=== PATIENT | female | born 1955 | race Caucasian/White ===

== ENCOUNTER → 2017-05-04 | Outpatient (CLI) | payer OTHER, SELFPAY | PROVIDERS: Visit Provider Family Medicine | DX: Z12.31 Encounter for screening mammogram for malignant neoplasm of breast (principal) | CPT/HCPCS: 77067; G0202 ==

== ENCOUNTER → 2018-04-25 17:25 | Outpatient (CLI) | payer OTHER, SELFPAY ==
[2018-04-25 17:30] LABS: Microscopic, Urine URINE MICROSCOPIC (MICROSCOPIC)
[2018-04-25 18:26] LABS: Appearance,Urine CLEAR (Clear); Bilirubin,Urine Negative (Negative); Blood, Urine Negative (Negative); Color,Urine YELLOW (Yellow); Glucose,Urine (UA) Negative (Negative); Ketones,Urine TRACE (Negative); Leukocyte Esterase,Urine 1+ (Negative); Nitrate,Urine Negative (Negative); PH,Urine 5.5 (5.0-8.5); Protein,Urine Negative (Negative); Urobilinogen,Urine 0.2 EU/dl (0.2)
[2018-04-25 18:47] LABS: Squamous Epithelial Cell,Urine Occasional #/hpf (0-5)
[2018-04-25 18:48] LABS: Bacteria,Urine Trace /lpf
== END ==
PROVIDERS: Visit Provider Emergency Medicine
DX: R30.0 Dysuria (principal)
CPT/HCPCS: 81001; 87086; 87088; 87186

== ENCOUNTER → 2019-03-06 16:44 | Outpatient (CLI) | payer OTHER, SELFPAY ==
--- NOTE | 2019-03-06 16:51 | MM_ITS ---
PROCEDURE: MM DIG SCREENING MAMM BI W/CAD CLINICAL INDICATION: SCEENING There is a history of breast cancer in the patient's paternal aunt. There has been previous biopsies x3 left breast for benign disease. COMPARISON: DMDXUWAL DIG MAMM-DX UNI LT W ADD VIEW from 04/23/2016 DMDB DIG MAMM-DX HARDEEP W/CAD from 10/28/2016 DMSB DIG MAMM-SCREEN HARDEEP W/CAD from 05/04/2017 TECHNIQUE: Standard CC and MLO images were obtained. R2 CAD reviewed. FINDINGS: Prominent diffuse somewhat heterogenic fibroglandular densities are seen in the central portions of both breasts and the findings of bilateral and symmetrical. There are 2 biopsy clips left breast. There is a stable cluster of benign-appearing microcalcifications upper-outer quadrant left breast. There is no suspicious lesion and no suspicious microcalcifications. IMPRESSION: Moderate diffuse breast density with no suspicious lesions seen BI-RAD Category: 2 Benign Finding(s) FOLLOW-UP: 1YR 1 Year Follow-up (A letter has been sent to the patient regarding results of the study.) Dictated by: Dr. Bharat Sanchez MD 03/08/2019 19:[address] Bharat Sanchez MD in [place] 03/08/2019 19:34
== END ==
PROVIDERS: PCP Family Medicine; Visit Provider Family Medicine
DX: Z12.31 Encounter for screening mammogram for malignant neoplasm of breast (principal)
CPT/HCPCS: 77067

== ENCOUNTER 2020-01-12 17:50 | Emergency (ER) | payer OTHER, SELFPAY ==
[2020-01-12 18:22] VITALS: BP 120/90; PULSE 72; RESP 20; TEMP 36.7; O2SAT 98; BMI 30.7
[2020-01-12 18:26] VITALS: BP 120/90; PULSE 72; RESP 20; TEMP 36.7; O2SAT 98; BMI 30.5
--- NOTE | 2020-01-12 18:28 | HMH.EDUTC ---
[facility] [place] Disposition Clinical Impression: Shingles Qualifiers: Herpes zoster complications: without complications Qualified Code(s): B02.9 - Zoster without complications Disposition: Home, Self-Care Condition on Discharge: Good Instructions: DI for Shingles, Shingles, Acyclovir Additional Instructions: Take medication as prescribed If lesions break out and start to ooz make sure to cover Return if needed Straight to ER if any life threatening symptoms Prescriptions: Acyclovir [Acyclovir 800mg tab] 800 mg PO 5XDAY 7 Days #35 tab Transmission Status: Pending to [facility] Referrals: Cathy Calderon MD [Primary Care Provider] - As needed Time of Disposition: 18:39 Medical Decision Making - [place] Inquiry Pt receiving controlled substance: No [place] was queried for this patient: No Vital Signs: 01/12/20 18:22 01/12/20 18:26 Temperature 98.0 F 98.0 F Temperature Source Oral Oral Pulse Rate [Left Brachial] 72 72 Respiratory Rate 20 20 Blood Pressure [Left Arm] 120/90 120/90 Blood Pressure Mean [Left Arm] 100 100 Blood Pressure Source [Left Arm] Automatic Cuff Automatic Cuff Blood Pressure Position [Left Arm] Sitting Sitting 02 Sat by Pulse Oximetry 98 98 Oxygen Delivery Method Room Air Room Air [facility] [place] HPI - General Stated complaint: sore spot on L side of head Time Seen by Provider: 01/12/20 18:25 Mode of Arrival: Ambulatory Source of Information: Patient Limitations: No Limitations Description of Symptoms (Recalled from Triage Doc. by RN): PATIENT C/O SCALP TENDERNESS TO LEFT SIDE OF HEAD AND DOWN RIGHT SIDE OF NECK. 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 DID NOT HIT HEAD, NO VISION CHANGES. SHE REPORTS LAST WEEK SHE ALSO EXPERIENCED BODY ACHES AND TENDERNESS BEHIND EARS - History of Present Illness Provider Complaint: Patient states that last week she had some swollen lymph nodes behind her left ear and has been having some body aches States that about an hour ago she was having a burning, tingling like pain on the left side of the top of her head and was sore to touch States that she hasnt hit her head or anything and unsure what is going on States that it is just like a small area there that is tender and hurts and mcghee - Related Data Home Medications Medication Instructions Recorded Confirmed albuterol sulfate 90 mcg/actuation 1 puff INHALATION Q6H PRN 02/04/19 02/04/19 aerosol inhaler cartilage 40 mg-collagen II-boron 1 tab PO tab 02/04/19 02/04/19 5 mg-hyaluronate sod 3.3 mg tablet conjugated estrogens 0.3 mg tablet 0.3 mg PO DAILY 02/04/19 02/04/19 conjugated estrogens 0.625 mg/gram 0.625 mg VAGINAL .once a week g 02/04/19 02/04/19 vaginal cream diphenhydramine HCl 25 mg capsule 25 mg PO QHS PRN 02/04/19 02/04/19 erythromycin 5 mg/gram (0.5 %) eye 1 applic OPHTHALMIC DAILY 02/04/19 02/04/19 ointment fexofenadine 180 mg tablet 180 mg PO DAILY 02/04/19 02/04/19 fluticasone 250 mcg-salmeterol 50 1 inh INHALATION Q12H 02/04/19 02/04/19 mcg/dose blistr powdr for inhalation furosemide 40 mg tablet 40 mg PO DAILY 02/04/19 02/04/19 montelukast 10 mg tablet 10 mg PO QPM 02/04/19 02/04/19 omeprazole 20 mg capsule,delayed 20 mg PO DAILY 02/04/19 02/04/19 release spironolactone 25 mg tablet 25 mg PO DAILY 02/04/19 02/04/19 vit C,E,zinc,copper-[id number] 250 1 cap PO DAILY 02/04/19 02/04/19 mg-lutein 5 mg-zeaxanthin 1 mg capsule Previous Rx's Medication Instructions Recorded cephalexin 500 mg tablet 500 mg PO BID 10 Days #20 tab 02/04/19 fluconazole 150 mg tablet 150 mg PO Q3D 0 Days #2 tab 02/04/19 phenazopyridine 100 mg tablet 100 mg PO TID PRN 0 Days #6 tab 02/04/19 Acyclovir [Acyclovir 800mg tab] 800 mg PO 5XDAY 7 Days #35 tab 01/12/20 Allergies Allergy/AdvReac Type Severity Reaction Status Date / Time ciprofloxacin [From Cipro] Allergy Unknown Verified 02/04/19 12:12 metronidazole Allergy Unknown Verified 02/04/19 12:12 Sulfa (Sulfonamide Aller
[2020-01-12 19:05] VITALS: BP 120/90; PULSE 72; RESP 20; TEMP 36.7; O2SAT 98
== END 2020-01-12 19:07 | disposition home or self-care (01) ==
PROVIDERS: Emergency Provider Nurse Practitioner; PCP Family Medicine
DX: B02.9 Zoster without complications (principal); J45.909 Unspecified asthma, uncomplicated; Z79.899 Other long term (current) drug therapy; Z88.2 Allergy status to sulfonamides; Z90.49 Acquired absence of other specified parts of digestive tract; Z90.710 Acquired absence of both cervix and uterus
CPT/HCPCS: 99201

== ENCOUNTER → 2020-03-15 08:49 | Outpatient (CLI) | payer OTHER, SELFPAY ==
--- NOTE | 2020-03-15 08:51 | MM_ITS ---
PROCEDURE: MM DIG SCREENING MAMM BI W/CAD Digital Breast Tomosynthesis Included CLINICAL INDICATION: SCREENING There is a history of breast cancer in the patient's paternal aunt. There have been previous biopsies left breast for benign disease.. COMPARISON: Digital mammograms with CAD 03/06/2019 and 05/04/2017 TECHNIQUE: Standard CC and MLO images and 3D Tomosynthesis was obtained. R2 CAD reviewed. FINDINGS: Prominent diffuse somewhat heterogenic fibroglandular densities are seen throughout both breast and the findings are fairly symmetrical bilaterally. There are 3 biopsy clips left breast there is a mole marker right breast. There is a cluster of benign-appearing microcalcifications upper outer quadrant left breast. These are stable and unchanged from the previous exams. There additional scattered microcalcifications upper-outer quadrant left breast consistent with sclerosing adenosis. There is a tiny stable benign-appearing nodular density outer quadrant left breast. There is no new or suspicious lesion in either breast and no suspicious microcalcifications. IMPRESSION: Diffusely dense parenchymal pattern with no suspicious lesions seen BI-RAD Category: 2 Benign Finding(s) FOLLOW-UP: 1YR 1 Year Follow-up (A letter has been sent to the patient regarding results of the study.) Dictated by: Dr. Bharat Sanchez MD 03/19/2020 11:41 Dr. Bharat Sanchez MD in [place] 03/19/2020 11:41
== END ==
PROVIDERS: PCP Family Medicine; Visit Provider Family Medicine
DX: Z12.31 Encounter for screening mammogram for malignant neoplasm of breast (principal)
CPT/HCPCS: 77063; 77067

== ENCOUNTER 2020-03-30 18:23 | Emergency (ER) | payer OTHER, SELFPAY ==
[2020-03-30 18:25] VITALS: BP 120/78; PULSE 87; RESP 20; TEMP 36.8; O2SAT 97; BMI 33.6
--- NOTE | 2020-03-30 18:44 | HMH.EDUTC ---
[facility] [place] Clinical Impression: Common cold virus, COVID-19 virus test result unknown Disposition: Home, Self-Care Condition on Discharge: Good Instructions: DI for Common Cold, Preventing the Spread of Coronavirus Discharge Instructions Additional Instructions: No sign of a bacterial infection. Likely viral. Viruses can take 7-14 days to run their course. Nasal saline and bulb syringe or nose Nydia to remove nasal drainage to help with nasal congestion. Hard to eat, drink, sleep with nasal congestion so important to keep this cleaned out. Monitor temp. Tylenol or Motrin as needed for pain or fever Encourage fluids, water, Gatorade, Powerade, Pedialyte if infant/toddler/child Warm salt water gargles Warm fluids Sore throat lozenges Sleep elevated Humidifier/vaporizer Your throat swab was sent for culture and covid test was sent to . These results are typically sent to the primary care. Be sure you follow-up in 2-3 days Follow-up immediately for new or worsening symptoms or no noticeable improvement over the next 48-72 hours. self isolate until test results are known to be neg Prescriptions: Fluticasone Propionate [Flonase 50mcg nasal spray 16gm] 1 spr NS DAILY 14 Days #1 bottle Prescription Printed Referrals: Cathy Calderon MD [Primary Care Provider] - Time of Disposition: 18:58 Medical Decision Making - [place] Inquiry Pt receiving controlled substance: No Vital Signs: 03/30/20 18:25 Temperature 98.2 F Temperature Source Oral Pulse Rate [Right Brachial] 87 Respiratory Rate 20 Blood Pressure [Right Arm] 120/78 Blood Pressure Mean [Right Arm] 92 Blood Pressure Source [Right Arm] Automatic Cuff Blood Pressure Position [Right Arm] Sitting 02 Sat by Pulse Oximetry 97 Oxygen Delivery Method Room Air - Lab Data Lab Results 03/30/20 18:32: Influenza Type A Ag Negative, Influenza Type B Ag Negative 03/30/20 18:32: Strep Scn Rapid Clinic Negative Orders (Tests/Meds): ORDERS Category Date Time Status Covid-19 Nasal PCR Sendout [facility] 03/30/20 18:35 Received Strep Screen Confirmation Stat Micro 03/30/20 18:32 Received [facility] [place] HPI - General Chief complaint: Urgent Treatment Center Stated complaint: COVID Testing Time Seen by Provider: 03/30/20 18:44 Mode of Arrival: Ambulatory Source of Information: Patient Limitations: No Limitations Description of Symptoms (Recalled from Triage Doc. by RN): PATIENT C/O SORE THROAT, SINUS CONGESTION/DRAINAGE, BODY ACHES AND FATIGUE X 1 WEEK HEENT Symptoms (Recalled from RN notes): Yes Resp Symptoms (Recalled from RN notes): No Skin Symptoms (Recalled from RN notes): No MS Symptoms (Recalled from RN notes): Yes Functional Status (Recalled from RN notes): WNL - History of Present Illness Provider Complaint: 64 yr old female presnets for covid testing. pt states for 1 week she has had clear nasal drainage, scratchy throat, body aches, slight cough and occ soa. pt states most symptoms are normal for her but she would like to make sure. - Related Data Home Medications Medication Instructions Recorded Confirmed albuterol sulfate 90 mcg/actuation 1 puff INHALATION Q6H PRN 02/04/19 02/04/19 aerosol inhaler cartilage 40 mg-collagen II-boron 1 tab PO tab 02/04/19 02/04/19 5 mg-hyaluronate sod 3.3 mg tablet conjugated estrogens 0.3 mg tablet 0.3 mg PO DAILY 02/04/19 02/04/19 conjugated estrogens 0.625 mg/gram 0.625 mg VAGINAL .once a week g 02/04/19 02/04/19 vaginal cream diphenhydramine HCl 25 mg capsule 25 mg PO QHS PRN 02/04/19 02/04/19 erythromycin 5 mg/gram (0.5 %) eye 1 applic OPHTHALMIC DAILY 02/04/19 02/04/19 ointment fexofenadine 180 mg tablet 180 mg PO DAILY 02/04/19 02/04/19 fluticasone 250 mcg-salmeterol 50 1 inh INHALATION Q12H 02/04/19 02/04/19 mcg/dose blistr powdr for inhalation furosemide 40 mg tablet 40 mg PO DAILY 02/04/19 02/04/19 montelukast 10 mg tablet 10 mg PO QPM 02/04/19 02/04/19 omeprazole 20
[2020-03-30 18:50] LABS: UTC Influenza A Antigen Negative (Negative); UTC Strep Screen (Rapid) Negative (Negative)
[2020-03-30 18:51] LABS: UTC Influenza B Antigen Negative (Negative)
[2020-03-30 18:59] VITALS: BP 120/78; PULSE 87; RESP 20; TEMP 36.8; O2SAT 97
[2020-04-01 10:15] LABS: Covid-19 Nasal PCR Sendout UK Not Detected
== END 2020-03-30 19:02 | disposition home or self-care (01) ==
PROVIDERS: Emergency Provider Nurse Practitioner Family; PCP Family Medicine
DX: Z20.828 Contact with and (suspected) exposure to other viral communicable diseases (principal); J00 Acute nasopharyngitis [common cold]; J45.909 Unspecified asthma, uncomplicated; Z79.899 Other long term (current) drug therapy; Z88.2 Allergy status to sulfonamides; Z88.8 Allergy status to other drugs, medicaments and biological substances; Z90.49 Acquired absence of other specified parts of digestive tract; Z90.710 Acquired absence of both cervix and uterus
CPT/HCPCS: 87804; 87880; 99202; U0003

== ENCOUNTER → 2020-04-30 12:44 | Outpatient (CLI) | payer OTHER, SELFPAY ==
--- NOTE | 2020-04-30 | CA_ITS ---
APPROVED REPORT Right Lower Extremity Venous Study for DVT. Recruiting Operations Consultant: Yahaira Xiong RVT Indications Lower Extremity Pain: Right Pain back of rt knee and back of calf Vein Imaging CFV (R): compressive, spontaneous, phasic, augmentation FEM (R): compressive, spontaneous, phasic, augmentation POP (R): compressive, spontaneous, phasic, augmentation PTV (R): Compressible GSV (R): Compressible Peroneals (R):Compressible GAS (R): Compressible Findings Study suggests no evidence of DVT of the right lower extremity. Study suggests no evidence of SVT of the right lower extremity. Conclusion Study suggests no evidence of DVT of the right lower extremity. Study suggests no evidence of SVT of the right lower extremity. Critical Notification Physician Notified Date: 04/30/2020 Time: 13:20 Physician Name: Harley Wasserman's office Electronically signed by : Momo Garrdio MD 04/30/2020 17:07:33
== END ==
PROVIDERS: PCP Family Medicine; Visit Provider Family Medicine
DX: M79.604 Pain in right leg (principal)
CPT/HCPCS: 93971

== ENCOUNTER 2020-09-06 17:40 | Emergency (ER) | payer OTHER, SELFPAY ==
[2020-09-06] VITALS (7 sets, daily range): BP systolic 104–123; BP diastolic 44–69; PULSE 71–76; RESP 16–18; TEMP 37.2; O2SAT 97–98; BMI 34.3
--- NOTE | 2020-09-06 17:37 | ECG_ITS ---
APPROVED REPORT Exam: Resting ECG HR:76 bpm ECG Measurements Heart Rate 76 AXES OR 142 P 46 QRSd 78 QRS 19 QT 406 T 62 QTc 456 Conclusion Normal sinus rhythm with sinus arrhythmia Normal ECG Electronically signed by : Pablo Phillips, 09/07/2020 08:45:00
--- NOTE | 2020-09-06 17:53 | XR_ITS ---
PROCEDURE INFORMATION: Exam: XR Chest Exam date and time: 09/06/2020 5:53 PM Age: 64 years old Clinical indication: Type not specified; Patient HX: Chest pain and tingling---. Asthma---. Non-smoker--- TECHNIQUE: Imaging protocol: XR of the chest. Views: 2 views. COMPARISON: CR CXR2 XR chest AP 04/02/2018 10:27 PM FINDINGS: Lungs: Unremarkable. No consolidation. Pleural spaces: Unremarkable. No pleural effusion. No pneumothorax. Heart/Mediastinum: Unremarkable. No cardiomegaly. Bones/joints: Unremarkable. IMPRESSION: No acute findings.
[2020-09-06 18:00] LABS: Basophils % 0.4 % (0.1-2.0); Eosinophils # 0.3 K/mm3 (0.0-0.4); Eosinophils % 2.6 % (0.1-12.0); Hematocrit 43.6 % (37.0-47.0); Hemoglobin 14.8 g/dL (12.2-16.2); Lymphocytes # 3.1 K/mm3 (0.7-4.5); Lymphocytes % 29.9 % (10-50); Mean Corpuscular Hemoglobin 32.9 pg (27.0-31.2); Mean Corpuscular Volume 96.9 fl (81-99); Mean Platelet Volume 7.3 fl (7.4-10.4); Monocytes # 0.6 K/mm3 (0.1-1.0); Monocytes % 5.6 % (1.7-9.3); Neutrophils # 6.4 K/mm3 (1.8-7.8); Neutrophils % 61.5 % (37.0-80.0); Platelet Count 286 K/mm3 (142-424); Red Cell Distribution Width 12.9 % (11.5-17.5); White Blood Count 10.3 K/mm3 (4.8-10.8)
[2020-09-06 18:05] LABS: Chloride 101 mmol/L (98-107); Sodium 137 mmol/L (136-145)
[2020-09-06 18:08] LABS: Blood Urea Nitrogen 15 mg/dl (7-17); Carbon Dioxide 28 mmol/L (22.0-30.0); Creatinine Clearance Estimated 81 mL/min (50-200); Estimated Glomerular Filt Rate 56 ml/min (>60); GFR (African American) 68 ML/MIN (>60); Glucose 103 mg/dl (74-100)
--- NOTE | 2020-09-06 18:14 | HMH.EDGENADL ---
ED Disposition Clinical Impression: Atypical chest pain, Palpitations Disposition: Still a Patient Condition on Discharge: Good Instructions: DI for Atypical Chest Pain, DI for Palpitations Additional Instructions: Follow-up with Dr. Salomon, cardiology, next week. Call Wednesday for appointment. Additional instructions for CHEST PAIN: See your physician as soon as possible for further evaluation. Return immediately if worsening chest pain, vomiting, shortness of breath, fever, coughing of blood. Referrals: Provider,MD Nubia [Referring] - Tahir Salomon MD [Staff Physician] - - Critical Care Critical Care Time: No Attestation: On 09/06/20, the high probability of a clinically significant, sudden or life threatening deterioration of the following system(s) required my full and direct attention, intervention and personal management. The time I documented below is in addition to time spent performing reported procedures but includes the following listed in this critical care notation. Medical Decision Making - [place] Inquiry Pt receiving controlled substance: No Vital Signs: 09/06/20 17:40 09/06/20 18:00 09/06/20 18:30 Temperature 98.9 F Temperature Source Oral Pulse Rate 74 76 Pulse Rate [Left Radial] 71 Respiratory Rate 18 16 16 Blood Pressure 104/56 L 123/69 Blood Pressure [Right Arm] 121/69 Blood Pressure Mean 77 83 Blood Pressure Mean [Right Arm] 86 Blood Pressure Source [Right Arm] Automatic Cuff Blood Pressure Position [Right Arm] Sitting 02 Sat by Pulse Oximetry 97 98 98 Oxygen Delivery Method Room Air 09/06/20 19:01 09/06/20 19:30 Temperature Temperature Source Pulse Rate 72 72 Pulse Rate [Left Radial] Respiratory Rate 18 16 Blood Pressure 106/44 L 118/68 Blood Pressure [Right Arm] Blood Pressure Mean 86 80 Blood Pressure Mean [Right Arm] Blood Pressure Source [Right Arm] Blood Pressure Position [Right Arm] 02 Sat by Pulse Oximetry 97 97 Oxygen Delivery Method Room Air - Lab Data Lab Results 09/06/20 17:40: WBC 10.3, RBC 4.50, Hgb 14.8, Hct 43.6, MCV 96.9, MCH 32.9 H, MCHC 34.0, RDW 12.9, Plt Count 286, MPV 7.3 L, Neut % (Auto) 61.5, Lymph % (Auto) 29.9, Pender % (Auto) 5.6, Eos % (Auto) 2.6, Baso % (Auto) 0.4, Neut # (Auto) 6.4, Lymph # (Auto) 3.1, Pender # (Auto) 0.6, Eos # (Auto) 0.3, Baso # (Auto) 0.0 09/06/20 17:40: Sodium 137, Potassium 4.0, Chloride 101, Carbon Dioxide 28, Anion Gap 12.0, BUN 15, Creatinine 1.00, Estimated Creat Clear 81, Estimated GFR 56 L, Est GFR ( Amer) 68, Glucose 103 H, Calcium 10.0, Troponin I < 0.01 Result diagrams: 09/06/20 17:40 09/06/20 17:40 Orders (Tests/Meds): ED MEDICATIONS Discontinued Medications Generic Name Dose Route Start Last Admin Trade Name Freq PRN Reason Stop Dose Admin Aspirin 324 mg 09/06/20 17:59 09/06/20 18:03 Aspirin 81mg Chewable Tablet PO 09/06/20 18:00 324 mg ONCE ONE Administration ORDERS Category Date Time Status Troponin I Q3H Lab 09/06/20 21:00 Ordered Troponin I Q3H Lab 09/07/20 00:00 Ordered - ECG Data Tracing #1 EKG interpreted by Arnaldo Campbell MD: Rhythm: sinus Rate: 76 [place]: normal Ectopy: none Conduction: normal ST Segment Changes: none T Wave Changes: none Q Waves: none No evidence of acute ischemia or injury Normal electrocardiogram - ORA Score for Non-Stemi Age of Patient: 60-69 years old Heart Rate: 70-89 bpm Systolic Blood Pressure: 120-139 mmhg Serum Creatinine: 0.80-1.19 mg/dl CHF Kill[place] Class: I-No CHF Other Risk Factors: None Non-Stemi Risk Score: 108 Medical Decision Narrative: Heart Pathway Score is: 1 Low Risk 8:15 PM: Awaiting second troponin, if negative will be discharged. Dr. Mc to follow-up second troponin. General Adult HPI - General Chief complaint: Chest Pain Stated complaint: Chest Pain Time Seen by Provider: 09/06/20 18:14 Mode of Arrival: Ambulatory [facility]
--- NOTE | 2020-09-06 18:16 | PC.NURSE ---
pt going to rad.
[2020-09-06 18:23] LABS: Troponin I < 0.01 ng/ml (0.00-0.034)
--- NOTE | 2020-09-06 20:31 | PC.NURSE ---
2nd trop sent up to lab
[2020-09-06 21:00] LABS: Troponin I < 0.01 ng/ml (0.00-0.034)
== END 2020-09-06 21:07 | disposition home or self-care (01) ==
PROVIDERS: Emergency Provider Emergency Medicine; PCP Family Medicine
DX: R07.89 Other chest pain (principal); R00.2 Palpitations; J45.909 Unspecified asthma, uncomplicated; Z79.899 Other long term (current) drug therapy; Z88.1 Allergy status to other antibiotic agents; Z88.2 Allergy status to sulfonamides; Z90.49 Acquired absence of other specified parts of digestive tract; Z90.79 Acquired absence of other genital organ(s)
CPT/HCPCS: 71046; 80048; 84484; 85025; 93005; 99282

== ENCOUNTER → 2021-03-20 12:48 | Outpatient (CLI) | payer MEDICARE, OTHER, SELFPAY ==
--- NOTE | 2021-03-20 12:51 | MM_ITS ---
PROCEDURE INFORMATION: Exam: MG Bilateral Screening 3D Mammography Exam date and time: 03/20/2021 12:51 PM Age: 65 years old Clinical indication: Screening exam; Family history of breast cancer : Aunt TECHNIQUE: Imaging protocol: Bilateral screening tomosynthesis and 2D mammography including computer-aided detection (CAD) when performed. COMPARISON: 1. MG MM DIG SCREENING MAMM BI W/CAD 03/15/2020 9:05 AM 2. MG MM DIG SCREENING MAMM BI W/CAD 03/06/2019 4:56 PM FINDINGS: MAMMOGRAPHY: Breast composition: The breast tissue is heterogeneously dense, which may obscure small masses. Mass: None. Architectural distortion: None. Calcifications: No suspicious calcifications. Asymmetric density: None. Skin thickening: None. Axillary adenopathy: None. IMPRESSION: No mammographic evidence of malignancy. Annual screening is recommended unless otherwise clinically indicated. ASSESSMENT: BI-RADS Category 1: Negative
== END ==
PROVIDERS: PCP Family Medicine; Visit Provider Family Medicine
DX: Z12.31 Encounter for screening mammogram for malignant neoplasm of breast (principal)
CPT/HCPCS: 77063; 77067

== ENCOUNTER → 2021-07-10 10:25 | Outpatient (CLI) | payer MEDICARE, OTHER, SELFPAY ==
[2021-07-10 10:55] LABS: Basophils # 0.1 K/mm3 (0-0.2); Basophils % 1.2 % (0.1-2.0); Eosinophils # 0.3 K/mm3 (0.0-0.4); Eosinophils % 2.6 % (0.1-12.0); Hematocrit 43.4 % (37.0-47.0); Hemoglobin 13.9 g/dL (12.2-16.2); Lymphocytes % 19.2 % (10-50); Mean Corpuscular HGB Conc 31.9 g/dL (31.8-35.4); Mean Corpuscular Hemoglobin 33.3 pg (27.0-31.2); Mean Corpuscular Volume 104.3 fl (81-99); Mean Platelet Volume 8.3 fl (7.4-10.4); Monocytes # 0.5 K/mm3 (0.1-1.0); Monocytes % 4.7 % (1.7-9.3); Neutrophils # 7.5 K/mm3 (1.8-7.8); Neutrophils % 72.3 % (37.0-80.0); Platelet Count 272 K/mm3 (142-424); Red Blood Count 4.16 M/mm3 (4.20-5.40); Red Cell Distribution Width 13.1 % (11.5-17.5); White Blood Count 10.3 K/mm3 (4.8-10.8)
== END ==
PROVIDERS: PCP Family Medicine; Visit Provider Family Medicine
DX: Z20.822 Contact with and (suspected) exposure to COVID-19 (principal)
CPT/HCPCS: 36415; 85025; C9803; U0003; U0005

== ENCOUNTER → 2021-09-15 09:03 | Outpatient (CLI) | payer MEDICARE, OTHER, SELFPAY ==
--- NOTE | 2021-09-15 09:18 | US_ITS ---
FINAL REPORT TECHNIQUE: Limited sonographic imaging was obtained of the left lower extremity. CLINICAL HISTORY: palpable area LT LOWER EXTREMTY FINDINGS: There is no soft tissue mass or fluid collection. IMPRESSION: Unremarkable left lower extremity ultrasound. Reviewed, Interpreted and Dictated by Srini West III, MD Transcribed by Sonia Salazar Authenticated by Srini West III, MD on 09/15/2021 11:20:39 AM [facility]
--- NOTE | 2021-09-15 09:39 | MR_ITS ---
FINAL REPORT CLINICAL HISTORY: DDD LUMBAR. tingling bilateral lower extremities. lbp. symptoms [id number]. 20ml prohance given. FINDINGS: Multiplanar MR imaging of the lumbar spine was performed without and with contrast. On the sagittal T2-weighted images, abnormal decreased signal is seen throughout. There are endplate changes at L5-S1. The vertebral alignment is normal. There is no evidence of fracture. The conus is seen at approximately the L1 level and has an unremarkable appearance. L1-2: No significant canal stenosis or neuroforaminal narrowing is seen. L2-3: No significant canal stenosis or neuroforaminal narrowing is seen. L3-4: Annular disc bulge without significant canal stenosis or neuroforaminal narrowing is seen. L4-5: Annular disc bulge and facet arthropathy with mild bilateral neural foraminal narrowing. L5-S1: Annular disc bulge with facet arthropathy and osteophytes. There is mild bilateral neural foraminal narrowing. No abnormal contrast enhancement is identified. IMPRESSION: Multilevel mild degenerative disc disease and spondylosis with areas of neural foraminal narrowing as described. Reviewed, Interpreted and Dictated by Srini West III, MD Transcribed by Sonia Salazar Authenticated by Srini West III, MD on 09/15/2021 12:32:28 PM [facility]
== END ==
PROVIDERS: PCP Family Medicine; Visit Provider Family Medicine
DX: M51.36 Other intervertebral disc degeneration, lumbar region (principal); D17.24 Benign lipomatous neoplasm of skin and subcutaneous tissue of left leg
CPT/HCPCS: 72158; 76376; 76882; A9576

== ENCOUNTER → 2021-11-12 18:08 | Outpatient (CLI) | payer MEDICARE, OTHER, SELFPAY | PROVIDERS: PCP Family Medicine; Visit Provider Family Medicine | DX: Z20.822 Contact with and (suspected) exposure to COVID-19 (principal) | CPT/HCPCS: C9803; U0003; U0005 ==

== ENCOUNTER → 2022-01-29 08:58 | Outpatient (CLI) | payer MEDICARE, OTHER, SELFPAY ==
--- NOTE | 2022-01-29 09:04 | XR_ITS ---
FINAL REPORT TECHNIQUE: Bone densitometry calculations of the lumbar spine and left hip were obtained. CLINICAL HISTORY: .post menopausal FINDINGS: Using L1-4, the bone mineral density of the spine is 1.072 g/cm2, corresponding to T-score of 0.2. Using the left hip, the bone mineral density of the femoral neck is 0.904 g/cm2, corresponding to a T-score of 0.4. IMPRESSION: Normal bone mineral density of the lumbar spine and hip. Reviewed, Interpreted and Dictated by Chevy Capellan MD Transcribed by Jero Lainez Authenticated and [facility]
== END ==
PROVIDERS: PCP Family Medicine; Visit Provider Family Medicine
DX: Z78.0 Asymptomatic menopausal state (principal); M85.80 Other specified disorders of bone density and structure, unspecified site
CPT/HCPCS: 77080

== ENCOUNTER → 2022-03-26 09:47 | Outpatient (CLI) | payer MEDICARE, OTHER, SELFPAY ==
--- NOTE | 2022-03-26 09:50 | MM_ITS ---
PROCEDURE INFORMATION: Exam: MG Bilateral Screening 3D Mammography Exam date and time: 03/26/2022 9:56 AM Age: 66 years old Clinical indication: Screening examination TECHNIQUE: Imaging protocol: Bilateral Screening tomosynthesis and 2D mammography including computer-aided detection (CAD) when performed. COMPARISON: 1. MG MM DIG SCREENING MAMM BI W/CAD 03/20/2021 1:08 PM 2. MG MM DIG SCREENING MAMM BI W/CAD 03/15/2020 9:05 AM FINDINGS: MAMMOGRAPHY: Breast composition: The breasts are heterogeneously dense, which may obscure small masses. Mass: None. Architectural distortion: None. Calcifications: No suspicious calcifications. Asymmetric density: None. Skin thickening: None. Axillary adenopathy: None. IMPRESSION: No mammographic evidence of malignancy. Annual screening is recommended unless otherwise clinically indicated. ASSESSMENT: BI-RADS Category 1: Negative
== END ==
PROVIDERS: PCP Family Medicine; Visit Provider Family Medicine
DX: Z12.31 Encounter for screening mammogram for malignant neoplasm of breast (principal)
CPT/HCPCS: 77063; 77067

== ENCOUNTER → 2022-04-15 17:33 | Outpatient (CLI) | payer MEDICARE, OTHER, SELFPAY ==
[2022-04-15 18:00] LABS: Influenza A, PCR Not Detected (NotDetected); Influenza B, PCR Not Detected (NotDetected)
[2022-04-15 18:28] LABS: Basophils % 1.1 % (0.1-2.0); Eosinophils % 1.1 % (0.1-12.0); Hematocrit 41.2 % (37.0-47.0); Hemoglobin 13.5 g/dL (12.2-16.2); Lymphocytes # 1.3 K/mm3 (0.7-4.5); Lymphocytes % 33.7 % (10-50); Mean Corpuscular HGB Conc 32.9 g/dL (31.8-35.4); Mean Corpuscular Hemoglobin 32.8 pg (27.0-31.2); Mean Corpuscular Volume 99.6 fl (81-99); Mean Platelet Volume 8.5 fl (7.4-10.4); Monocytes # 0.5 K/mm3 (0.1-1.0); Monocytes % 12.6 % (1.7-9.3); Neutrophils % 51.6 % (37.0-80.0); Platelet Count 204 K/mm3 (142-424); Red Blood Count 4.13 M/mm3 (4.20-5.40); Red Cell Distribution Width 13.4 % (11.5-17.5); White Blood Count 3.8 K/mm3 (4.8-10.8)
[2022-04-15 19:19] LABS: Strep Scrn Group A (Rapid) Negative (Negative)
[2022-04-15 19:22] LABS: Coronavirus 19, PCR Detected (NotDetected)
== END ==
PROVIDERS: PCP Family Medicine; Visit Provider Physician Assistant
DX: U07.1 COVID-19 (principal); J02.9 Acute pharyngitis, unspecified
CPT/HCPCS: 36415; 85025; 87430; C9803; U0003; U0005

== ENCOUNTER → 2022-08-27 10:42 | Outpatient (CLI) | payer MEDICARE, OTHER, SELFPAY ==
--- NOTE | 2022-08-27 | CA_ITS ---
FINAL REPORT TECHNIQUE: Color Doppler, duplex Doppler and posey scale sonography of the bilateral neck arterial vasculature was performed. Velocities were measured in the carotid arteries. Stenosis evaluation based on the validated velocity criteria. CLINICAL HISTORY: abn dental xray COMPARISON: None FINDINGS: The peak systolic velocity of the right common carotid artery is 80 cm/s. The peak systolic velocity of the right internal carotid artery is 131 cm/s and end diastolic velocity 43 cm/s. The ICA/CCA ratio is 1.8. A small amount of plaque is present. The right external carotid artery is patent. The right vertebral artery is patent with antegrade flow. The peak systolic velocity of the left common carotid artery is 70 cm/s. The peak systolic velocity of the left internal carotid artery is 103 cm/s and end diastolic velocity 40 cm/s. The ICA/CCA ratio is 1.5. A small amount of plaque is present. The left external carotid artery is patent.The left vertebral artery is patent with antegrade flow. IMPRESSION: Less than 50% bilateral carotid stenoses. Bilateral patent vertebral arteries with antegrade flow. If indicated, CTA or MRA could further evaluate. Reviewed, Interpreted and Dictated by Srini West III, MD Transcribed by Adri Lowe Authenticated and [facility]
== END ==
PROVIDERS: PCP Family Medicine; Visit Provider Physician Assistant
DX: I65.23 Occlusion and stenosis of bilateral carotid arteries (principal)
CPT/HCPCS: 93880

== ENCOUNTER → 2023-04-08 10:42 | Outpatient (CLI) | payer MEDICARE, OTHER, SELFPAY ==
--- NOTE | 2023-04-08 10:55 | MM_ITS ---
PROCEDURE INFORMATION: Exam: MG Bilateral Screening 3D Mammography Exam date and time: 04/08/2023 10:47 AM Age: 67 years old Clinical indication: Screening examination TECHNIQUE: Imaging protocol: Bilateral Screening tomosynthesis and 2D mammography including computer-aided detection (CAD) when performed. COMPARISON: 1. MG MM DIG SCREENING MAMM BI W/CAD 03/26/2022 9:56 AM 2. MG MM DIG SCREENING MAMM BI W/CAD 03/20/2021 1:08 PM FINDINGS: MAMMOGRAPHY: Breast composition: The breasts are heterogeneously dense, which may obscure small masses. Mass: None. Architectural distortion: None. Calcifications: No suspicious calcifications. Asymmetric density: None. Skin thickening: None. Axillary adenopathy: None. IMPRESSION: No mammographic evidence of malignancy. Annual screening is recommended unless otherwise clinically indicated. ASSESSMENT: BI-RADS Category 1: Negative
== END ==
PROVIDERS: PCP Family Medicine; Visit Provider Family Medicine
DX: Z12.31 Encounter for screening mammogram for malignant neoplasm of breast (principal)
CPT/HCPCS: 77063; 77067

== ENCOUNTER 2023-07-22 11:00 | Outpatient (CLI) | payer MEDICARE, OTHER, SELFPAY ==
--- NOTE | 2023-07-22 11:05 | XR_ITS ---
FINAL REPORT CLINICAL HISTORY: CHEST PAIN. pain when exhaling COMPARISON: 09/06/2020 FINDINGS: Two views of the chest were obtained. The heart size and pulmonary vascularity are within normal limits. The mediastinum is normal. No acute pulmonary abnormality is identified. There is no pneumothorax. The bony thorax is intact. IMPRESSION: No active cardiopulmonary disease. Reviewed, Interpreted and Dictated by Srini West III, MD Transcribed by Carine Dias Authenticated and [facility]
== END 2023-07-22 23:59 ==
PROVIDERS: PCP Family Medicine; Visit Provider Physician Assistant
DX: R07.1 Chest pain on breathing (principal)
CPT/HCPCS: 71046

== ENCOUNTER 2024-04-20 09:11 | Outpatient (CLI) | payer MEDICARE, OTHER, SELFPAY ==
--- NOTE | 2024-04-20 10:22 | MM_ITS ---
PROCEDURE INFORMATION: Exam: MG Bilateral Screening 3D Mammography Exam date and time: 04/20/2024 10:31 AM Age: 68 years old Clinical indication: Screening examination TECHNIQUE: Imaging protocol: Bilateral Screening tomosynthesis and 2D mammography including computer-aided detection (CAD) when performed. COMPARISON: 1. MG MM DIG SCREENING MAMM BI W/CAD 04/08/2023 10:47 AM 2. MG MM DIG SCREENING MAMM BI W/CAD 03/26/2022 9:56 AM FINDINGS: MAMMOGRAPHY: Breast composition: The breasts are heterogeneously dense, which may obscure small masses. Mass: No suspicious masses. Architectural distortion: None. Calcifications: No suspicious calcifications. Asymmetric density: None. Skin thickening: None. Axillary adenopathy: None. IMPRESSION: No mammographic evidence of malignancy. Annual screening is recommended unless otherwise clinically indicated. ASSESSMENT: BI-RADS Category 1: Negative.
== END 2024-04-20 23:59 | disposition home or self-care (01) ==
LOC: RAD 04-28 09:13
PROVIDERS: PCP Family Medicine; Visit Provider Family Medicine
DX: Z12.31 Encounter for screening mammogram for malignant neoplasm of breast (principal)
CPT/HCPCS: 77063; 77067

== ENCOUNTER 2024-06-04 21:30 | Emergency (ER) | payer MEDICARE, OTHER, SELFPAY ==
--- NOTE | 2024-06-04 21:33 | ECG_ITS ---
APPROVED REPORT Exam: Resting ECG HR:90 bpm ECG Measurements Heart Rate 90 AXES MO 144 P 63 QRSd 82 QRS 41 QT 376 T 73 QTc 423 Conclusion SINUS RHYTHM NORMAL ECG Electronically signed by : CHANO BLANKENSHIP, 06/05/2024 22:03:50
[2024-06-04 21:36] VITALS: BP 154/89; PULSE 98; RESP 20; TEMP 36.5; O2SAT 96; BMI 38.6
--- NOTE | 2024-06-04 21:36 | ED_ITS ---
Discharge Plan Disposition Patient Disposition: Home, Self-Care Condition: Good Prescriptions Prescriptions: No Action fexofenadine [Aller-Fex] 180 mg tablet 180 mg PO DAILY montelukast [Singulair] 10 mg tablet 10 mg PO QPM fluticasone propion-salmeterol [Advair Diskus] 250-50 mcg/dose blister with device 1 inh INHALATION Q12H Premarin 0.3 mg tablet 0.3 mg PO DAILY omeprazole 20 mg capsule,delayed release(DR/EC) 20 mg PO DAILY spironolactone 25 mg tablet 25 mg PO DAILY furosemide 40 mg tablet 40 mg PO DAILY erythromycin 5 mg/gram (0.5 %) ointment 1 applic OPHTHALMIC DAILY Move Free Ultra Triple Action 40-5-3.3 mg tablet 1 tab PO DAILY Ocuvite Adult 50 Plus 250-5-1 mg capsule 1 cap PO DAILY Premarin 0.625 mg/gram cream 0.625 mg VAGINAL WEEKLY diphenhydramine HCl [Benadryl] 25 mg capsule 25 mg PO DAILY PRN (Reason: Allergic Reaction) albuterol sulfate [Ventolin HFA] 90 mcg/actuation HFA aerosol inhaler 1 puff INHALATION Q6 PRN (Reason: Shortness Of Breath Or Wheezing) phenazopyridine [Pyridium] 100 mg tablet 100 mg PO TID PRN (Reason: pain) 0 Days Qty: 6 0RF fluticasone propion-salmeterol 28 PUFFS blister with device 1 puffs IH DAILY potassium chloride 20 MEQ tablet extended release 20 meq PO BID fluticasone propionate 120 SPR/BOT bottle 1 spr NS DAILY Referrals Follow up/Referrals: Tahir Salomon MD [Staff Physician] - See instructions (cp, reassuring ER workup but multiple comorbidities) Provider,MD Nubia [Primary Care Provider] - See instructions Activity Restrictions/Add. Instructions Additional Instructions/Restrictions: You were evaluated in the ER and are appropriate for discharge at this time. Continue taking your home medications as prescribed. Please make an appointment with your primary care doctor for reevaluation in 2 to 3 days. Also follow-up with cardiology, you have been referred to them for this purpose. Return to the ER with new, worsening, or otherwise concerning symptoms Clinical Impressions Clinical Impression: Chest pain Print Language Print Language: Prydeinig Discharge ED Provider: Alberto Aden General Adult HPI <Alberto Aden MD - Last Filed: 06/04/24 23:09> General Chief complaint: Chest Pain Stated complaint: chest pain Time Seen by Provider: 06/04/24 21:35 History of Present Illness HPI narrative: Patient presents for evaluation of chest pain, substernal, described as pressure, gradual in onset, nonpleuritic, nonexertional, with no associated dyspnea, however he does report recent diagnosis of bronchitis and frequent cough, not overtly reproducible to palpation, no associated hemoptysis, no syncope or presyncope or palpitations. No previous therapies. Patient denies history of CAD. Denies any fevers or chills or leg pain or leg swelling. Pain has radiated at times to jaw and left arm. Please note that above description of symptoms, in this electronic medical record under categorization of recalled from ER triage doctor by RN are reflective of an initial nursing assessment, however, is not reflective of my full history and physical exam that was personally taken and clarified. Consequentially, this preceding description of symptoms, which may include the patient's categorized chief complaint in the EMR, do not reflect my personal clinical impression, and the ultimate description of history of present illness and patient stated complaints should be deferred to this section of the note. Unless stated otherwise or congruent with this section of the note, additional signs, symptoms, or incongruence should be interpreted as inaccurate with my clinical impression. Related Data Home Medications ?Medication ?Instructions ?Recorded ?Confirmed albuterol sulfate 90 mcg/actuation 1 puff inhalation Q6 PRN Shortness 02/04/19 09/06/20 aerosol inhaler (Ventolin HFA) Of Breath Or Wheezing cartilage 40 mg-collagen II-boron 1 tab PO DAILY Diet supplement 02/04/19 09/06/20 5 mg-hyaluronate sod 3.3 mg tablet (Move Free Ultra Triple Action (boron)) conjugated estrogens 0.3 mg tablet 0.3 mg PO DAILY hormone replacement 02/04/19 09/06/20 (Premarin) conjugated estrogens 0.625 mg/gram 0.625 mg vaginal WEEKLY hormone 02/04/19 09/06/20 vaginal cream (Premarin) diphenhydramine HCl 25 mg capsule 25 mg PO DAILY PRN Allergic 02/04/19 09/06/20 (Benadryl) Reaction erythromycin 5 mg/gram (0.5 %) eye 1 applic ophthalmic (eye) DAILY . 02/04/19 09/06/20 ointment fexofenadine 180 mg tablet 180 mg PO DAILY . 02/04/19 09/06/20 (Aller-Fex) fluticasone 250 mcg-salmeterol 50 1 inh inhalation Q12H Breathing 02/04/19 09/06/20 mcg/dose blistr powdr for problems inhalation (Advair Diskus) furosemide 40 mg tablet 40 mg PO DAILY Fluid 02/04/19 09/06/20 montelukast 10 mg tablet 10 mg PO QPM Breathing problems 02/04/19 09/06/20 (Singulair) omeprazole 20 mg capsule,delayed 20 mg PO DAILY GERD 02/04/19 09/06/20 release spironolactone 25 mg tablet 25 mg PO DAILY High blood pressure 02/04/19 09/06/20 vit C,E,zinc,copper-[id number] 250 1 cap PO DAILY Diet supplement 02/04/19 09/06/20 mg-lutein 5 mg-zeaxanthin 1 mg capsule (Ocuvite Adult 50 Plus) fluticasone 100 mcg-salmeterol 50 1 puffs IH DAILY Breathing problems 09/06/20 09/06/20 mcg/dose blistr powdr for inhalation fluticasone propionate 50 1 spr NS DAILY Allergy symptoms 09/06/20 09/06/20 mcg/actuation nasal spray,suspension potassium chloride 20 mEq 20 meq PO BID Diet supplement 09/06/20 09/06/20 tablet,extended release Previous Rx's ?Medication ?Instructions ?Recorded phenazopyridine 100 mg tablet 100 mg PO TID PRN pain 6 doses #6 02/04/19 (Pyridium) tabs Allergies Allergy/AdvReac Type Severity Reaction Status Date / Time ciprofloxacin (From Cipro) Allergy Unknown Verified 02/04/19 12:12 metronidazole Allergy Unknown Verified 02/04/19 12:12 Sulfa (Sulfonamide Allergy Unknown Verified 02/04/19 12:12 Antibiotics) cefaclor Allergy Verified 01/12/20 18:31 nitrofurantoin (From Allergy Verified 01/12/20 18:31 Macrobid) [place] Allergy Intermediate I-RASH Uncoded 04/27/17 14:49 PFS <Alberto Aden MD - Last Filed: 06/04/24 23:09> [facility] Disclaimer: The information contained in this section may have been updated after the patient was seen, as this information can be updated by other users. Social History Smoking Status: Never smoker alcohol intake: never current occupational status: other Travel in the last 8 weeks: None Have you lived/traveled outside US in past 30 days?: No Contact w/someone who lives/traveled outside US past 30 days?: No Exposure to someone with infectious disease in past 14 days?: No Do you have a fever (greater than 100.4 F or 38 C)?: No Have you tested positive for COVID-19: No Exposed to someone with COVID-19 in past 14 days?: No Do you have a sore throat?: No Do you have a cough?: No Do you have any weakness?: No Do you have any diarrhea?: No Are you experiencing any unusual bleeding?: No Do you have any muscle aches/pain?: No Do you have any abdominal pain?: No Are you experiencing loss of taste or smell?: No Other Medical History Have you received the Flu Vaccine for this season: No Have you received the Pneumonia Vaccine: No <Alberto Aden MD - Last Filed: 06/04/24 23:09> ROS Obtained: Yes other As per HPI Physical Exam <Alberto Aden MD - Last Filed: 06/04/24 23:09> General General appearance: alert and in no apparent distress Head Head exam: atraumatic and normocephalic Eye Eye exam: Present normal appearance Neck Neck exam: Present normal inspection Chest Chest inspection: Present normal inspection and symmetric chest wall rise Respiratory Respiratory exam: Present normal lung sounds bilaterally; Absent respiratory distress Cardiovascular Cardiovascular exam: Present regular rate and normal rhythm Abdominal Exam Abdominal exam: Present soft Neurological Exam Neurological exam: Present alert and oriented X3 Psychiatric Psychiatric exam: Present normal affect and normal mood Skin Skin exam: Present warm and dry Medical Decision Making <Alberto Aden MD - Last Filed: 06/04/24 23:09> Medical Records Medical records reviewed: Yes I reviewed the patient's medical records. Screening: Per USPSTF and CDC recommendations, given the prevalence of disease in our region, it is our hospital?s policy to screen for HIV and viral Hepatitis for all patients aged 18 and over and those with ongoing risk factors. [place] Inquiry Pt receiving controlled substance: No Vital Signs: 06/04/24 21:36 06/04/24 22:30 Temperature 97.7 F Temperature Source Oral Pulse Rate 78 Pulse Rate [Apical] 98 H Respiratory Rate 20 Blood Pressure 145/76 H Blood Pressure [Left Arm] 154/89 H Blood Pressure Mean [Left Arm] 110 02 Sat by Pulse Oximetry 96 97 Oxygen Delivery Method Room Air Lab Data Lab Results 06/04/24 21:40: WBC 9.4, RBC 4.18 L, Hgb 14.1, Hct 41.6, MCV 99.5 H, MCH 33.7 H, MCHC 33.9, RDW 12.6, Plt Count 255, MPV 10.3, Neut % (Auto) 47.5, Lymph % (Auto) 38.3, [place] % (Auto) 7.8, Eos % (Auto) 5.4, Baso % (Auto) 0.6, Neut # (Auto) 4.4, Lymph # (Auto) 3.6, [place] # (Auto) 0.7, Eos # (Auto) 0.5 H, Baso # (Auto) 0.1, D- Dimer 0.37, Sodium 141, Potassium 4.2, Chloride 104, Carbon Dioxide 28, Anion Gap 13.2, BUN 21 H, Creatinine 1.00, Estimated Creat Clear 87, Estimated GFR 55 L, Est GFR ( Amer) 67, Glucose 94, Calcium 9.3, Total Bilirubin 0.4, AST 41 H, ALT 26, Alkaline Phosphatase 78, Troponin I < 0.01, Total Protein 7.5, Albumin 4.5, Globulin 3.0, Albumin/Globulin Ratio 1.5, Lipase 202 06/04/24 22:06: SARS-CoV-2 (PCR) Not detected, Influenza A Untype (PCR) Not detected, Influenza Type B (PCR) Not detected 06/05/24 00:00: Troponin I < 0.01 06/04/24 21:40 06/04/24 21:40 Orders (Tests/Meds): ORDERS Category Date Time Status XR chest portable Stat Exams 06/04/24 21:56 Completed CBC w/Auto Diff [Complete Blood Count Auto Diff] Stat Lab 06/04/24 21:40 Completed CMP [Comprehensive Metabolic Panel] Stat Lab 06/04/24 21:40 Completed D-Dimer Stat Lab 06/04/24 21:40 Completed Lipase Stat Lab 06/04/24 21:40 Completed Rapid PCR Covid and Flu A/B Stat Lab 06/04/24 22:06 Completed Troponin I Q3H Lab 06/04/24 21:40 Completed Troponin I Q3H Lab 06/05/24 00:00 Completed HEART Score History (anamnesis): Slightly suspicious ECG: Non-specific disturbance Age: >65 years Risk factors: No known risk factors Troponin: </= normal limit HEART Score: 3 Medical Decision Narrative: Patient with history and exam per above presenting for evaluation of chest pain Diagnoses considered include ACS, PE, bronchitis, pneumonia, referred pain from pancreatitis, among others ED workup and treatment included: ORDERS Category Date Time Status XR chest portable Stat Exams 06/04/24 21:56 Completed CBC w/Auto Diff [Complete Blood Count Auto Diff] Stat Lab 06/04/24 21:40 Completed CMP [Comprehensive Metabolic Panel] Stat Lab 06/04/24 21:40 Completed D-Dimer Stat Lab 06/04/24 21:40 Completed Lipase Stat Lab 06/04/24 21:40 Completed Rapid PCR Covid and Flu A/B Stat Lab 06/04/24 22:06 Completed Troponin I Q3H Lab 06/04/24 21:40 Completed Troponin I Q3H Lab 06/05/24 01:00 Ordered Labs were independently interpreted by me, significant for no acute findings, delta troponin pending Imaging was independently visualized and interpreted by me, significant for no acute findings Please refer to radiology report for full details. Delta troponin pending. Care transferred to incoming physician <Ivanna Johnson MD - Last Filed: 06/05/24 00:30> Vital Signs: 06/04/24 21:36 06/04/24 22:30 Temperature 97.7 F Temperature Source Oral Pulse Rate 78 Pulse Rate [Apical] 98 H Respiratory Rate 20 Blood Pressure 145/76 H Blood Pressure [Left Arm] 154/89 H Blood Pressure Mean [Left Arm] 110 02 Sat by Pulse Oximetry 96 97 Oxygen Delivery Method Room Air Lab Data Lab Results 06/04/24 21:40: WBC 9.4, RBC 4.18 L, Hgb 14.1, Hct 41.6, MCV 99.5 H, MCH 33.7 H, MCHC 33.9, RDW 12.6, Plt Count 255, MPV 10.3, Neut % (Auto) 47.5, Lymph % (Auto) 38.3, [place] % (Auto) 7.8, Eos % (Auto) 5.4, Baso % (Auto) 0.6, Neut # (Auto) 4.4, Lymph # (Auto) 3.6, [place] # (Auto) 0.7, Eos # (Auto) 0.5 H, Baso # (Auto) 0.1, D- Dimer 0.37, Sodium 141, Potassium 4.2, Chloride 104, Carbon Dioxide 28, Anion Gap 13.2, BUN 21 H, Creatinine 1.00, Estimated Creat Clear 87, Estimated GFR 55 L, Est GFR ( Amer) 67, Glucose 94, Calcium 9.3, Total Bilirubin 0.4, AST 41 H, ALT 26, Alkaline Phosphatase 78, Troponin I < 0.01, Total Protein 7.5, Albumin 4.5, Globulin 3.0, Albumin/Globulin Ratio 1.5, Lipase 202 06/04/24 22:06: SARS-CoV-2 (PCR) Not detected, Influenza A Untype (PCR) Not detected, Influenza Type B (PCR) Not detected 06/05/24 00:00: Troponin I < 0.01 Orders (Tests/Meds): ORDERS Category Date Time Status XR chest portable Stat Exams 06/04/24 21:56 Completed CBC w/Auto Diff [Complete Blood Count Auto Diff] Stat Lab 06/04/24 21:40 Completed CMP [Comprehensive Metabolic Panel] Stat Lab 06/04/24 21:40 Completed D-Dimer Stat Lab 06/04/24 21:40 Completed Lipase Stat Lab 06/04/24 21:40 Completed Rapid PCR Covid and Flu A/B Stat Lab 06/04/24 22:06 Completed Troponin I Q3H Lab 06/04/24 21:40 Completed Troponin I Q3H Lab 06/05/24 00:00 Completed HEART Score HEART Score: 3 Medical Decision Narrative: Patient with history and exam per above presenting for evaluation of chest pain Diagnoses considered include ACS, PE, bronchitis, pneumonia, referred pain from pancreatitis, among others ED workup and treatment included: ORDERS Category Date Time Status XR chest portable Stat Exams 06/04/24 21:56 Completed CBC w/Auto Diff [Complete Blood Count Auto Diff] Stat Lab 06/04/24 21:40 Completed CMP [Comprehensive Metabolic Panel] Stat Lab 06/04/24 21:40 Completed D-Dimer Stat Lab 06/04/24 21:40 Completed Lipase Stat Lab 06/04/24 21:40 Completed Rapid PCR Covid and Flu A/B Stat Lab 06/04/24 22:06 Completed Troponin I Q3H Lab 06/04/24 21:40 Completed Troponin I Q3H Lab 06/05/24 01:00 Ordered Labs were independently interpreted by me, significant for no acute findings, delta troponin pending Imaging was independently visualized and interpreted by me, significant for no acute findings Please refer to radiology report for full details. Delta troponin pending. Care transferred to incoming physician Johnson: Upon my assumption of care patient is stable, resting comfortably. She was placed into ED observation at 2300 hrs. for serial troponins to rule out evolving AL and preclude unnecessary admission. She remained on the cardiac cath rn and was frequently reassessed. She remained asymptomatic. Repeat troponin was also undetectably low which is significantly reassuring against cardiac pathology. Her vitals continue to be stable and at this time she is appropriate for discharge. I provided referral to cardiology for outpatient follow-up. Patient was given instructions on symptomatic monitoring and management, follow up instructions, and return precautions for the emergency department. Patient indicated understanding and was discharged in stable condition. Total time in ED observation: 1 hour 30 minutes Critical Care <Alberto Aden MD - Last Filed: 06/04/24 23:09> Critical Care Time Critical Care Time: No
--- NOTE | 2024-06-04 21:56 | XR_ITS ---
PROCEDURE INFORMATION: Exam: XR Chest Exam date and time: 06/04/2024 9:58 PM Age: 68 years old Clinical indication: Pain; Cough and shortness of breath; Left-sided; Additional info: Chest pain/soa/cough TECHNIQUE: Imaging protocol: Radiologic exam of the chest. Views: 1 view. COMPARISON: CR XR CHEST 2V 07/22/2023 11:19 AM FINDINGS: Lungs: Left lower lobe calcified granuloma. No consolidation. Pleural spaces: Unremarkable. No pleural effusion. No pneumothorax. Heart/Mediastinum: Unremarkable. No cardiomegaly. Bones/joints: Unremarkable. IMPRESSION: No acute findings.
[2024-06-04 22:06] LABS: Basophils # 0.1 K/mm3 (0-0.2); Basophils % 0.6 % (0.1-2.0); Eosinophils # 0.5 K/mm3 (0.0-0.4); Eosinophils % 5.4 % (0.1-12.0); Hematocrit 41.6 % (37.0-47.0); Hemoglobin 14.1 g/dL (12.2-16.2); Lymphocytes # 3.6 K/mm3 (0.7-4.5); Lymphocytes % 38.3 % (10-50); Mean Corpuscular HGB Conc 33.9 g/dL (31.8-35.4); Mean Corpuscular Hemoglobin 33.7 pg (27.0-31.2); Mean Corpuscular Volume 99.5 fl (81-99); Mean Platelet Volume 10.3 fl (7.4-10.4); Monocytes # 0.7 K/mm3 (0.1-1.0); Monocytes % 7.8 % (1.7-9.3); Neutrophils # 4.4 K/mm3 (1.8-7.8); Neutrophils % 47.5 % (37.0-80.0); Platelet Count 255 K/mm3 (142-424); Red Blood Count 4.18 M/mm3 (4.20-5.40); Red Cell Distribution Width 12.6 % (11.5-17.5); White Blood Count 9.4 K/mm3 (4.8-10.8)
[2024-06-04 22:08] LABS: Coronavirus 19, PCR Not Detected (NotDetected); Influenza A, PCR Not Detected (NotDetected); Influenza B, PCR Not Detected (NotDetected)
[2024-06-04 22:09] LABS: Albumin Level 4.5 g/dl (3.5-5.0); Chloride 104 mmol/L (98-107); Potassium 4.2 mmoL/L (3.5-5.1); Sodium 141 mmol/L (136-145)
[2024-06-04 22:12] LABS: Alanine Aminotransferase 26 U/L (12-78); Albumin/Globulin Ratio 1.5 (1.1-1.8); Alkaline Phosphatase 78 U/L (38-126); Anion Gap 13.2 mEq/L (5-15); Aspartate Amino Transferase 41 U/L (14-36); Bilirubin,Total 0.4 mg/dl (0.2-1.3); Blood Urea Nitrogen 21 mg/dl (7-17); Calcium 9.3 mg/dl (8.4-10.2); Carbon Dioxide 28 mmol/L (22.0-30.0); Creatinine Clearance Estimated 87 mL/min (50-200); Estimated Glomerular Filt Rate 55 ml/min (>60); GFR (African American) 67 ML/MIN (>60); Glucose 94 mg/dl (74-100); Lipase 202 U/L (23-300); Total Protein,Serum 7.5 g/dl (6.3-8.2)
[2024-06-04 22:19] LABS: D-Dimer 0.37 ug/mL (0.0-0.5)
[2024-06-04 22:30] VITALS: BP 145/76; PULSE 78; O2SAT 97
[2024-06-04 22:33] LABS: Troponin I < 0.01 ng/ml (0.00-0.034)
--- NOTE | 2024-06-04 23:48 | PC.NURSE ---
Repeat troponin drawn and sent to lab
[2024-06-05 00:23] LABS: Troponin I < 0.01 ng/ml (0.00-0.034)
[2024-06-05 00:30] VITALS: BP 123/61; PULSE 77; RESP 20; TEMP 36.8; O2SAT 95
== END 2024-06-05 00:41 | disposition home or self-care (01) ==
PROVIDERS: Emergency Provider Emergency Medicine
DX: R07.9 Chest pain, unspecified (principal); R05.9 Cough, unspecified
CPT/HCPCS: 71045; 80053; 83690; 84484; 85025; 85378; 87636; 93005; 99284

== ENCOUNTER 2024-10-09 16:24 | Outpatient (CLI) | payer MEDICARE, OTHER, SELFPAY ==
--- NOTE | 2024-10-09 | CT_ITS ---
PROCEDURE INFORMATION: Exam: CT Abdomen And Pelvis Without Contrast Exam date and time: 10/09/2024 4:37 PM Age: 68 years old Clinical indication: Other: Acute diverticulitis. Left sided abdominal pain. TECHNIQUE: Imaging protocol: Computed tomography of the abdomen and pelvis without contrast. Radiation optimization: All CT scans at this facility use at least one of these dose optimization techniques: automated exposure control; mA and/or kV adjustment per patient size (includes targeted exams where dose is matched to clinical indication); or iterative reconstruction. COMPARISON: CR PEL1V XR pelvis 1-2V 04/02/2018 10:29 PM FINDINGS: Lungs: Left lung calcified granuloma is benign. Diaphragm: Small hiatal hernia. Liver: Liver is enlarged measuring 18 cm. Single calcified liver granuloma is benign. Gallbladder and biliary ducts: Cholecystectomy. There is no evidence of biliary ductal dilation. Pancreas: Normal. No ductal dilation. Spleen: The spleen demonstrates punctate calcifications, consistent with remote granulomatous organism exposure. Adrenal glands: Normal. No mass. Kidneys and ureters: Normal. No hydronephrosis. Stomach and bowel: Unremarkable. No obstruction. No mucosal thickening. Appendix: No evidence of appendicitis. Intraperitoneal space: Unremarkable. No free air. No significant fluid collection. Vasculature: Unremarkable. No abdominal aortic aneurysm. Lymph nodes: Unremarkable. No enlarged lymph nodes. Urinary bladder: Bladder is decompressed and difficult to evaluate. Reproductive: There has been a hysterectomy. Bones/joints: Mild multilevel degenerative changes of the spine. No acute skeletal abnormality or aggressive osseous lesion. Soft tissues: Unremarkable. IMPRESSION: No acute findings.
--- OUTSIDE RECORDS SUMMARY | 2024-10-09 16:27 | XMS_ITS ---
Author Organization Unknown Vital Signs BpStanding BpSitting BpSupine Date Temperature HeartRate Weight Hei ght Spo2 Respiration Bmi HeadCircumference FieldCount TimeRecorded NeckCircumferen ce WaistCircumference Pulse 120/70 05/25 00:00 :00 99.0 94 225,9.6 0 5,4 38.7 2 6 10/09/2024 11:00:00 118/70 05/11 00:00 :00 98.6 89 228,12. 80 5,4 39.2 7 6 10/09/2024 10:45:00 120/70 01/16 00:00 :00 98.2 85 230,3.2 0 5,4 39.5 1 6 10/09/2024 15:15:00
== END 2024-10-09 23:59 | disposition home or self-care (01) ==
LOC: RAD 16:25
PROVIDERS: PCP Family Medicine; Visit Provider Family Medicine
DX: K57.92 Diverticulitis of intestine, part unspecified, without perforation or abscess without bleeding (principal)
CPT/HCPCS: 74176

== ENCOUNTER 2024-10-17 17:02 | Emergency (ER) | payer MEDICARE, OTHER, SELFPAY ==
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
[2024-10-17 17:51] VITALS: BP 135/68; PULSE 66; RESP 19; TEMP 36.6; O2SAT 97; BMI 39.3
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
--- NOTE | 2024-10-17 18:36 | CT_ITS ---
PROCEDURE INFORMATION: Exam: CT Abdomen And Pelvis With Contrast Exam date and time: 10/17/2024 7:35 PM Age: 68 years old Clinical indication: Abdominal pain; Additional info: Right low pelvic pain TECHNIQUE: Imaging protocol: Computed tomography of the abdomen and pelvis with contrast. Radiation optimization: All CT scans at this facility use at least one of these dose optimization techniques: automated exposure control; mA and/or kV adjustment per patient size (includes targeted exams where dose is matched to clinical indication); or iterative reconstruction. Contrast material: ISOVUE; Contrast volume: 75 ml; Contrast route: IV; COMPARISON: CT ABDOMEN PELVIS WO CON 10/09/2024 4:37 PM FINDINGS: Liver: Normal. No mass. Gallbladder and biliary ducts: Cholecystectomy. Pancreas: Normal. No ductal dilation. Spleen: Small granulomatous calcifications within the spleen. Adrenal glands: Normal. No mass. Kidneys and ureters: Normal. No hydronephrosis. Stomach and bowel: Unremarkable. No obstruction. No mucosal thickening. Appendix: No evidence of appendicitis. Intraperitoneal space: Unremarkable. No free air. No significant fluid collection. Vasculature: Unremarkable. No abdominal aortic aneurysm. Lymph nodes: Unremarkable. No enlarged lymph nodes. Urinary bladder: Unremarkable as visualized. Reproductive: Hysterectomy. Bones/joints: Degenerative changes in the spine. No acute fracture. Soft tissues: Unremarkable. IMPRESSION: No acute findings. Evidence of prior granulomatous exposure.
[2024-10-17 18:51] LABS: Microscopic, Urine URINE MICROSCOPIC (MICROSCOPIC)
[2024-10-17 18:52] LABS: Appearance,Urine SL CLOUDY (Clear); Bilirubin,Urine Negative (Negative); Blood, Urine Negative (Negative); Color,Urine YELLOW (Yellow); Glucose,Urine (UA) Negative (Negative); Ketones,Urine Negative (Negative); Leukocyte Esterase,Urine Negative (Negative); Nitrate,Urine Negative (Negative); Protein,Urine Negative (Negative); Specific Gravity, Urine 1.015 (1.005-1.030); Urobilinogen,Urine 0.2 EU/dl (0.2)
--- NOTE | 2024-10-17 18:57 | ED_ITS ---
<Statement entered by Gregory Guajardo MD - 10/18/24 01:53> Independently and examined this patient and performed a physical exam. She has some focal tenderness over the right lower quadrant, possible fat-containing hernia. She is still passing gas and having bowel movements. Low concern for obstruction. Cross-sectional imaging independently interpreted by myself demonstrates no evidence of obstruction. Radiology final read does not remark upon hernia. Patient is reassured by this and her pain is improved. Discharged with outpatient follow-up instructed precautions. I was consulted by the URSULA, and we discussed the complexity of problems being addressed. I approved the treatment and management plan for this patient's care in the emergency department, thus performing a substantial portion of the medical decision making. Gregory Guajardo MD Discharge Plan Disposition Patient Disposition: Home, Self-Care Prescriptions Prescriptions: No Action fexofenadine [Aller-Fex] 180 mg tablet 180 mg PO DAILY montelukast [Singulair] 10 mg tablet 10 mg PO QPM fluticasone propion-salmeterol [Advair Diskus] 250-50 mcg/dose blister with device 1 inh INHALATION Q12H Premarin 0.3 mg tablet 0.3 mg PO DAILY omeprazole 20 mg capsule,delayed release(DR/EC) 20 mg PO DAILY spironolactone 25 mg tablet 25 mg PO DAILY furosemide 40 mg tablet 40 mg PO DAILY erythromycin 5 mg/gram (0.5 %) ointment 1 applic OPHTHALMIC DAILY Move Free Ultra Triple Action 40-5-3.3 mg tablet 1 tab PO DAILY Ocuvite Adult 50 Plus 250-5-1 mg capsule 1 cap PO DAILY Premarin 0.625 mg/gram cream 0.625 mg VAGINAL WEEKLY diphenhydramine HCl [Benadryl] 25 mg capsule 25 mg PO DAILY PRN (Reason: Allergic Reaction) albuterol sulfate [Ventolin HFA] 90 mcg/actuation HFA aerosol inhaler 1 puff INHALATION Q6 PRN (Reason: Shortness Of Breath Or Wheezing) phenazopyridine [Pyridium] 100 mg tablet 100 mg PO TID PRN (Reason: pain) 0 Days Qty: 6 0RF fluticasone propion-salmeterol 28 PUFFS blister with device 1 puffs IH DAILY potassium chloride 20 MEQ tablet extended release 20 meq PO BID fluticasone propionate 120 SPR/BOT bottle 1 spr NS DAILY Referrals Follow up/Referrals: Cathy Calderon MD [Primary Care Provider, Medical] - See instructions Activity Restrictions/Add. Instructions Additional Instructions/Restrictions: Increase fluids and rest take Tylenol and ibuprofen for pain if needed. Please follow with PCP as needed. If any worsening signs or symptoms occur please return to ED Clinical Impressions Clinical Impression: Abdominal pain Instructions Patient Instructions: DI for Acute Abdominal Pain Print Language Print Language: Georgian Discharge ED Provider: Gregory Guajardo General Adult HPI General Chief complaint: Abdominal Pain Stated complaint: Hernia right groin area painful Time Seen by Provider: 10/17/24 18:21 Mode of Arrival: Ambulatory Source of Information: Patient Description of Symptoms (Recalled from ER Triage Doc. by RN): Patient presents to ED from home, reports she was lifting a box earlier today when she started having right lower abdominal pain. Reports hx of right inguinal hernia. History of Present Illness HPI narrative: 68-year-old female presents to the ED today with complaint of right low abdomen/groin pain. She says she believes that she has a hernia in her right pelvis. She says she had a scan last Wednesday because she was having left-sided pain. Today she bent over picked up a box and started having sharp low pelvic pain. She has had multiple abdominal surgeries, cystocele's and 18 bladder attacks. She is concerned that she has caused herself a hernia. She has no bulge or area that can be reduced. She has no nausea, vomiting or diarrhea. No other associated symptoms at this time. Related Data Home Medications ?Medication ?Instructions ?Recorded ?Confirmed albuterol sulfate 90 mcg/actuation 1 puff inhalation Q 6 PRN Shortness 02/04/19 10/17/24 aerosol inhaler (Ventolin HFA) Of Breath Or Wheezing cartilage 40 mg-collagen II-boron 1 tab PO DAILY Diet supplement 02/04/19 10/17/24 5 mg-hyaluronate sod 3.3 mg tablet (Move Free Ultra Triple Action (boron)) conjugated estrogens 0.3 mg tablet 0.3 mg PO DAILY hor jessica replacement 02/04/19 10/17/24 (Premarin) conjugated estrogens 0.625 mg/gram 0.625 mg vaginal WE EKLY hormone 02/04/19 10/17/24 vaginal cream (Premarin) diphenhydramine HCl 25 mg capsule 25 mg PO DAILY PRN A llergic 02/04/19 10/17/24 (Benadryl) Reaction erythromycin 5 mg/gram (0.5 %) eye 1 applic ophthalmic (eye) DAILY . 02/04/19 10/17/24 ointment fexofenadine 180 mg tablet 180 mg PO DAILY . 02/04/19 10/17/24 (Aller-Fex) fluticasone 250 mcg-salmeterol 50 1 inh inhalation Q12 H Breathing 02/04/19 10/17/24 mcg/dose blistr powdr for problems inhalation (Advair Diskus) furosemide 40 mg tablet 40 mg PO DAILY Fluid 9 10/17/24 montelukast 10 mg tablet 10 mg PO QPM Breathing probl ems 02/04/19 10/17/24 (Singulair) omeprazole 20 mg capsule,delayed 20 mg PO DAILY GERD 0 02/04/19 10/17/24 release spironolactone 25 mg tablet 25 mg PO DAILY High blood pressure 02/04/19 10/17/24 vit C,E,copper,zinc-mlbqm0y 250 1 cap PO DAILY Diet espana pplement 02/04/19 10/17/24 mg-lutein 5 mg-zeaxanthin 1 mg capsule (Ocuvite Adult 50 Plus) fluticasone 100 mcg-salmeterol 50 1 puffs IH DAILY Laurie athing problems 09/06/20 10/17/24 mcg/dose blistr powdr for inhalation fluticasone propionate 50 1 spr NS DAILY Allergy sympt oms 09/06/20 10/17/24 mcg/actuation nasal spray,suspension potassium chloride 20 mEq 20 meq PO BID Diet supplemen t 09/06/20 10/17/24 tablet,extended release Previous Rx's ?Medication ?Instructions ?Recorded phenazopyridine 100 mg tablet 100 mg PO TID PRN pain 6 doses #6 02/04/19 (Pyridium) tabs Allergies Allergy/AdvReac Type Severity Reaction Status Date / Time ciprofloxacin (From Cipro) Allergy Unknown Verified 02/04/19 12:12 metronidazole Allergy Unknown Verified 02/04/19 12:12 Sulfa (Sulfonamide Allergy Unknown Verified 02/04/19 12:12 Antibiotics) cefaclor Allergy Verified 01/12/20 18:31 nitrofurantoin (From Allergy Verified 01/12/20 18:31 Macrobid) [place] [facility] Allergy Intermediate I-RASH Uncoded 04/27/17 14:49 [facility] Disclaimer: The information contained in this section may have been updated after the patient was seen, as this information can be updated by other users. Social History Smoking Status: Never smoker alcohol intake: never current occupational status: other Travel in the last 8 weeks?: None Have you lived/traveled outside US in past 30 days?: No Contact w/someone who lives/traveled outside US past 30 days?: No Exposure to someone with infectious disease in past 14 days?: No Do you have a fever (greater than 100.4 F or 38 C)?: No Have you tested positive for COVID-19?: No Exposed to someone with COVID-19 in past 14 days?: No Do you have a sore throat?: No Do you have a cough?: No Do you have any weakness?: No Do you have any diarrhea?: No Are you experiencing any unusual bleeding?: No Do you have any muscle aches/pain?: No Do you have any abdominal pain?: No Are you experiencing loss of taste or smell?: No Other Medical History Have you received the Flu Vaccine for this season: No Have you received the Pneumonia Vaccine: No ROS Obtained: Yes Systems reviewed as appropriate & no additional complaints except as documented Constitutional Constitutional: Reports as per HPI Physical Exam General General appearance: alert and in no apparent distress Head Head exam: normocephalic Eye Eye exam: Present normal appearance, PERRL and EOMI ENT ENT exam: Present normal oropharynx and mucous membranes moist Neck Neck exam: Present full ROM and trachea midline Chest Chest inspection: Present normal inspection Respiratory Respiratory exam: Present normal lung sounds bilaterally Cardiovascular Cardiovascular exam: Present regular rate, normal rhythm, normal heart sounds, +S1 and +S2 Abdominal Exam Abdominal exam: Present soft and normal bowel sounds Abdominal tenderness: Present RLQ and moderate Extremities Exam Extremities exam: Present normal inspection, full ROM and normal capillary refill Neurological Exam Neurological exam: Present alert, oriented X3 and normal gait Skin Skin exam: Present warm, dry and intact Medical Decision Making Medical Records Screening: Per USPSTF and CDC recommendations, given the prevalence of disease in our region, it is our hospital?s policy to screen for HIV and viral Hepatitis for all patients aged 18 and over and those with ongoing risk factors. [place] Inquiry Pt receiving controlled substance: No [place] was queried for this patient: No Vital Signs: 10/17/24 17:51 10/17/24 21:04 Temperature 98 F 98.3 F Temperature Source Oral Pulse Rate 63 Pulse Rate [Right Brachial] 66 Respiratory Rate 19 18 Blood Pressure 108/59 L Blood Pressure [Right Arm] 135/68 Blood Pressure Mean [Right Arm] 90 Blood Pressure Source [Right Arm] Automatic Cuff Blood Pressure Position [Right Arm] Sitting 02 Sat by Pulse Oximetry 97 Oxygen Delivery Method Room Air Room Air Lab Data Lab Results 10/17/24 18:45: Urine Color Yellow, Urine Appearance Sl cloudy, Urine pH 6.0, Ur Specific [place] 1.015, Urine Protein Negative, Urine Glucose (UA) Negative, Urine Ketones Negative, Urine Blood Negative, Urine Nitrate Negative, Urine Bilirubin Negative, Urine Urobilinogen 0.2, Ur Leukocyte Esterase Negative, Urine RBC Occasional, Urine WBC Occasional, Ur Squamous Epith Cells 20-50, Urine Bacteria Trace 10/17/24 18:54: WBC 10.1, RBC 4.20, Hgb 14.1, Hct 40.9, MCV 97.4, MCH 33.6 H, MCHC 34.5, RDW 12.2, Plt Count 278, MPV 10.3, Neut % (Auto) 55.6, Lymph % (Auto) 34.1, [place] % (Auto) 7.0, Eos % (Auto) 2.6, Baso % (Auto) 0.4, Neut # (Auto) 5.6, Lymph # (Auto) 3.5, [place] # (Auto) 0.7, Eos # (Auto) 0.3, Baso # (Auto) 0.0, Sodium 137, Potassium 3.8, Chloride 105, Carbon Dioxide 29, Anion Gap 6.8, BUN 13, Creatinine 0.90, Estimated Creat Clear 88, Estimated GFR 62, Est GFR ( Amer) 75, Glucose 92, Calcium 9.5, Magnesium 2.0, Total Bilirubin 0.6, AST 32, ALT 25, Alkaline Phosphatase 77, Total Protein 7.7, Albumin 4.6, Globulin 3.1, Albumin/Globulin Ratio 1.5, Lipase 183 10/17/24 18:54 10/17/24 18:54 Orders (Tests/Meds): ED MEDICATIONS Discontinued Medications Generic Name Dose Route Start Last Admin Trade Name Freq PRN Reason Stop Dose Admin Acetaminophen 1,000 mg 10/17/24 19:27 10/17/24 19:46 Acetaminophen 1,000mg/100ml Vial IV 10/17/24 19:28 1,000 mg ONCE ONE Administration Iopamidol 75 ml 10/17/24 19:34 10/17/24 19:35 Iopamidol-370 (76%);100ml Bottle IV 10/17/24 19:35 75 ml ONCE ONE Administration Morphine Sulfate 4 mg 10/17/24 18:56 10/17/24 19:24 Morphine 4mg/Ml Syringe IV 10/17/24 18:57 Not Given ONCE ONE Ondansetron HCl 4 mg 10/17/24 18:56 10/17/24 19:25 Ondansetron 4mg/2ml Vial IV 10/17/24 18:57 Not Given ONCE ONE Sodium Chloride 10 ml 10/17/24 19:34 10/17/24 19:35 Sodium Chloride 0.9% 10ml Syr (Rad Only) IV 10/17/24 19:35 10 ml ONCE ONE Administration ORDERS Category Date Time Status CT abdomen pelvis w con Stat Cat Scan 10/17/24 18:36 Completed CBC [Complete Blood Count Auto Diff] Stat Lab 10/17/24 18:54 Completed Comprehensive Metabolic Panel Stat Lab 10/17/24 18:54 Completed Lipase Stat Lab 10/17/24 18:54 Completed Magnesium Stat Lab 10/17/24 18:54 Completed Urinalysis and Microscopic Stat Lab 10/17/24 18:45 Completed Medical Decision Narrative: patient is a 88-year-old female presenting to the emergency department for evaluation of right pelvic pain she states that she picked up a box and started having sharp pain in her right lower pelvis, not quite to her inguinal area. Patient is hemodynamically stable and nontoxic-appearing upon arrival, afebrile.. Differential diagnosis includes hernia, among others. Workup will be conducted with hematologic labs, specific imaging. Initial inventions include analgesics. Initial workup reviewed by me hematologic labs are remarkable for nothing acute. Imaging informally interpreted by me and remarkable for thing acute. Formal imaging read remarkable for nothing acute. Upon repeat evaluation patient is doing well. Patient is safe for discharge home. Workup has been essentially negative. Patient is going to follow-up with PCP. Critical Care Critical Care Time Critical Care Time: No
[2024-10-17 19:03] LABS: Basophils % 0.4 % (0.1-2.0); Eosinophils # 0.3 Kmm3 (0.0-0.4); Eosinophils % 2.6 % (0.1-12.0); Hematocrit 40.9 % (37.0-47.0); Hemoglobin 14.1 g/dL (12.2-16.2); Immature Granulocytes # 0.03 10^3uL; Immature Granulocytes % 0.3 %; Lymphocytes # 3.5 K/mm3 (0.7-4.5); Lymphocytes % 34.1 % (10-50); Mean Corpuscular HGB Conc 34.5 g/dL (31.8-35.4); Mean Corpuscular Hemoglobin 33.6 pg (27.0-31.2); Mean Corpuscular Volume 97.4 fl (81-99); Mean Platelet Volume 10.3 fl (7.4-10.4); Monocytes # 0.7 K/mm3 (0.1-1.0); Neutrophils # 5.6 K/mm3 (1.8-7.8); Neutrophils % 55.6 % (37.0-80.0); Nucleated Red Blood Cells # 0 10^3/uL; Nucleated Red Blood Cells % 0 %; Platelet Count 278 K/mm3 (142-424); Red Cell Distribution Width 12.2 % (11.5-17.5); Red Cell Distribution Width-SD 43.6 fL; White Blood Count 10.1 K/mm3 (4.8-10.8)
[2024-10-17 19:17] LABS: RBC,Urine Occasional #/hpf (0-3)
[2024-10-17 19:18] LABS: Bacteria,Urine Trace /lpf; Squamous Epithelial Cell,Urine 20-50 #/hpf (0-5); WBC,Urine Occasional #/hpf (0-3)
[2024-10-17 19:22] LABS: Alanine Aminotransferase 25 U/L (12-78); Albumin Level 4.6 g/dl (3.5-5.0); Albumin/Globulin Ratio 1.5 (1.1-1.8); Alkaline Phosphatase 77 U/L (38-126); Anion Gap 6.8 mEq/L (5-15); Aspartate Amino Transferase 32 U/L (14-36); Bilirubin,Total 0.6 mg/dl (0.2-1.3); Blood Urea Nitrogen 13 mg/dl (7-17); Calcium 9.5 mg/dl (8.4-10.2); Carbon Dioxide 29 mmol/L (22.0-30.0); Chloride 105 mmol/L (98-107); Creatinine Clearance Estimated 88 mL/min (50-200); Estimated Glomerular Filt Rate 62 ml/min (>60); GFR (African American) 75 ML/MIN (>60); Globulin 3.1 g/dL (1.3-3.2); Glucose 92 mg/dl (74-100); Lipase 183 U/L (23-300); Potassium 3.8 mmoL/L (3.5-5.1); Sodium 137 mmol/L (136-145); Total Protein,Serum 7.7 g/dl (6.3-8.2)
[2024-10-17] MEDS: SODIUM CHLORIDE 0.9% 10ML SYR (RAD ONLY) 10 ML IV (19:35)
[2024-10-17] MEDS: IOPAMIDOL-370 (76%);100ML BOTTLE 75 ML IV (19:35)
[2024-10-17] MEDS: ACETAMINOPHEN 1,000MG/100ML VIAL 1000 MG IV (19:46)
[2024-10-17 21:04] VITALS: BP 108/59; PULSE 63; RESP 18; TEMP 36.8; O2SAT 96
== END 2024-10-17 21:05 | disposition home or self-care (01) ==
PROVIDERS: Nurse Practitioner; Emergency Provider Emergency Medicine; PCP Family Medicine
DX: R10.31 Right lower quadrant pain (principal)
CPT/HCPCS: 74177; 80053; 81001; 83690; 83735; 85025; 96374; 99284; J0131; Q9967

== ENCOUNTER 2024-11-09 08:49 | Outpatient (CLI) | payer MEDICARE, OTHER, SELFPAY ==
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
--- OUTSIDE RECORDS SUMMARY | 2024-10-23 09:37 | XMS_ITS ---
Author Organization [facility] Address [address] [facility] [address] [place] [id number] Care Team Providers Care Washer Meat Name Role Phone Dionicio Calderon Primary Care Provider REASON FOR VISIT due mamm, colonoscopy & bone density Encounters Encounter Location Date Provider Diagnosis [facility] [address] [facility] [address] [place] [id number] 10/23/2024 Dionicio Calderon Screening for colon cancer Z12.11 and Screening for osteoporosis Z13.820 Assessments Encounter Date Diagnosis (ICD Code) Assessment Notes Treatment Notes Treatment Clinical Notes Section Notes 10/23/2024 Screening for colon cancer (ICD-10 - Z12.11) 10/23/2024 Screening for osteoporosis (ICD-10 - Z13.820) Plan Of Treatment Pending Test Test Name Order Date Bone density 10/23/2024 Cologuard 10/23/2024 Progress Notes * CHRISTA MATIAS DionicioDOB:1955 (68 yo F)Acc No.[id number]:10/23/2024 Patient: CHRISTA SALAZAR :1955 A ge:68 Y S ex:Female Address:[facility] [place] [place] [address] Subjective: * Chief Complaints: * D ue mamm, colonoscopy & bone density * Medical History: * Surgical History: * Hospitalization/Major Diagno stic Procedure: * Medications: Objective: * Vitals: * Physical Examination: Assessment: * Assessment: 1. S creening for colon cancer - Z12.11 (Primary) 2 . S creening for osteoporosis - Z13.820 Plan: * Treatment: 2. S creening for osteoporosis I maging: Bone density * Procedure Codes: * true * Date: Generated for Glendy vickers/Renee/Liz on: 0 11/09/2024 09:01 AM EDT
--- NOTE | 2024-11-09 08:52 | XR_ITS ---
FINAL REPORT CLINICAL HISTORY: SCREENING COMPARISON: 01/29/2022 FINDINGS: Using L1-4, the bone mineral density of the spine is 1.118 g/cm2, corresponding to T-score of 0.6, within normal limits. Previously was 1.072 with a T-score of 0.2. Using the left hip, the bone mineral density of the femoral neck is 0.950 g/cm2, corresponding to a T-score of 0.1, within normal limits. Previously was 0.904 with a T-score of -0.3. Using the right hip, the bone mineral density of the femoral neck is 0.910 g/cm2, corresponding to a T-score of 0.5, within normal limits. Previously was 0.805 with a T-score of -0.4. FRAX not reported because all T-scores at or above-1.0. NOTE: T-score: Standard deviation compared with peak bone mass of young adult mean. *Following the recommendations of the International Society of Bone densitometry, classification of hip BMD is based on the lower of two T-scores; total hip or femoral neck. IMPRESSION: Normal bone mineral density of the lumbar spine and hips. Reviewed, Interpreted and Dictated by Chevy Capellan MD Transcribed by Adri Lowe Authenticated and [facility]
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
== END 2024-11-09 23:59 | disposition home or self-care (01) ==
LOC: RAD 08:50
PROVIDERS: PCP Family Medicine; Visit Provider Family Medicine
DX: M81.0 Age-related osteoporosis without current pathological fracture (principal)
CPT/HCPCS: 77080

== ENCOUNTER 2025-04-17 15:30 | Outpatient (CLI) | payer MEDICARE, OTHER, SELFPAY ==
[2025-04-17 15:59] LABS: Hematocrit 43.5 % (37.0-47.0); Hemoglobin 14.6 g/dL (12.2-16.2); Immature Granulocytes % 0.3 %; Mean Corpuscular HGB Conc 33.6 g/dL (31.8-35.4); Mean Corpuscular Hemoglobin 32.7 pg (27.0-31.2); Mean Corpuscular Volume 97.5 fl (81-99); Nucleated Red Blood Cells % 0 %; Platelet Count 262 K/mm3 (142-424); Red Blood Count 4.46 M/mm3 (4.20-5.40); Red Cell Distribution Width-SD 43.6 fL; White Blood Count 11.6 K/mm3 (4.8-10.8)
[2025-04-17 16:26] LABS: Alanine Aminotransferase 17 U/L (12-78); Albumin Level 4.5 g/dl (3.5-5.0); Alkaline Phosphatase 97 U/L (38-126); Anion Gap 14.0 mEq/L (5-15); Aspartate Amino Transferase 28 U/L (14-36); Bilirubin,Direct 0.1 mg/dl (0.0-0.4); Bilirubin,Indirect 0.6 mg/dL (0.0-0.9); Bilirubin,Total 0.7 mg/dl (0.2-1.3); Bilirubin,Unconjugated 0.6 mg/dL (0.0-1.1); Blood Urea Nitrogen 14 mg/dl (7-17); Calcium 9.7 mg/dl (8.4-10.2); Carbon Dioxide 27 mmol/L (22.0-30.0); Chloride 101 mmol/L (98-107); Cholesterol 220 mg/dl (140-200); Creatinine,Serum 1.00 mg/dl (0.52-1.04); D-Dimer < 0.25 ug/mL (0.0-0.5); Estimated Glomerular Filt Rate 55 ml/min (>60); GFR (African American) 67 ML/MIN (>60); Glucose 86 mg/dl (74-100); Magnesium 2.1 mg/dl (1.6-2.3); Potassium 4.0 mmoL/L (3.5-5.1); Sodium 138 mmol/L (136-145); Total Protein,Serum 7.8 g/dl (6.3-8.2); Triglycerides 132 mg/dl (30-150)
[2025-04-17 16:46] LABS: Free T4 (Free Thyroxine) 0.98 ng/dl (0.78-2.19)
[2025-04-17 16:54] LABS: HDL Cholesterol 120 mg/dl (40-60)
[2025-04-17 17:02] LABS: Thyroid Stimulating Hormone 2.52 uIU/mL (0.465-4.68)
== END 2025-04-17 23:59 | disposition home or self-care (01) ==
LOC: LAB 15:32
PROVIDERS: PCP Family Medicine; Visit Provider Internal Medicine
DX: R00.2 Palpitations (principal); R53.83 Other fatigue; R60.1 Generalized edema; Z13.6 Encounter for screening for cardiovascular disorders
CPT/HCPCS: 36415; 80048; 80061; 80076; 82043; 82570; 83735; 84439; 84443; 85025; 85378; 93270

== ENCOUNTER 2025-04-26 07:21 | Outpatient (CLI) | payer MEDICARE, OTHER, SELFPAY ==
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
--- OUTSIDE RECORDS SUMMARY | 2024-02-24 06:55 | XMS_ITS ---
Author Organization [facility] Address [address] [facility] 36 [facility] [address] [place] [phone] Care Team Providers Care Lap Hand Tool Name Role Phone Dionicio Calderon Primary Care Provider REASON FOR VISIT FLU SHOT Immunizations Vaccine Route Administration Date Status Comme nts Fluzone High Dose (65yr and older) IM Intramuscular 02/24/2024 Administered Encounters Encounter Location Date Provider Diagnosis [place] [address] [facility] [address] [place] [phone] 02/24/2024 Dionicio Calderon Encounter for immunization Z23 Assessments Encounter Date Diagnosis (ICD Code) Assessment Notes Treatment Notes Treatment Clinical Notes Section Notes 02/24/2024 Encounter for immunization (ICD-10 - Z23) Plan Of Treatment No Information Progress Notes * CHRISTA MATIAS JDOB:1955 (69 yo F)Acc No.[id number]:02/24/2024 Patient: CHRISTA SALAZAR Provider: Dionicio Calderon M.D. :1955 A ge:68 Y S ex:Female Date:02/24/2024 Address:[address], [id number] Subjective: * Chief Complaints: * 1 . FLU SHOT. * Medical History: Objective: * Vitals: Assessment: * Assessment: 1. E ncounter for immunization - Z23 (Primary) Plan: * Treatment: * Immunizations: Fluzone High Dose (65yr and older) : 0.5 mL (Route: Intramuscular) given by Solange Gonzales on Right Deltoid (Encounter for immunization) * Images: Billing Information: * Visit Code: * Procedure Codes: * Electronic signature of Dionicio Calderon MD on 04/26/2025 at 07:25 AM EST Sign off status: Pending * Provider: Dionicio Calderno M.D. Date: 1 Generated for Glendy vickers/Renee/Liz on: 06/27/2024 07:25 AM EST
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
--- OUTSIDE RECORDS SUMMARY | 2025-03-08 08:30 | XMS_ITS ---
Author Organization [facility] Address [address] [facility] [place] [phone] Care Team Providers Care Basket Braider Name Role Phone Dionicio Calderon Primary Care Provider REASON FOR VISIT flu shot Medications Medication SIG (Take, Route, Frequency, Duration) Notes Start Date End Date Status Spironolactone 25 MG 1 tablet Orally Onc e a day; Duration: 90 days Active Advair Diskus 100-50 MCG/ACT 1 puff(s) inhaled noon; Duration: 30 days Active Fluticasone Propionate 50 MCG/ACT 1 spray(s) in each nostril once a day Active methylPREDNISolone 4 MG as directed Orally 025 Active Fluconazole 150 MG 1 tablet Orally daily 5 Active Montelukast Sodium 10 MG 1 tablet Orally once daily; Duration: 90 days Active SHARON 180 MG 1 TAB QD Activ e Premarin 0.625 MG/GM _insert 1 GRAM VAGINALLY TWICE WEEKLY (IN THE EVENING) DIRECTED; Duration: 30 Active Albuterol Sulfate HFA 108 (90 Base) MCG/ACT INHALE 2 PUFF(S) BY MOUTH EVERY 6 HOURS NEEDED; Duration: 25 Active [place] Nasal [place] 0.65 % 2 spray(s) intranasally 4 times a day Active Benadryl Allergy 25 MG 1 tab(s) orally a t bedtime; Duration: 0 Active PATADAY ONCE DAILY RELIEF 0.2% 1 GTT IN EACH AFFECTED EYE ONCE A DAY; Duration: 10 DAY(S) Active Meclizine HCl 25 MG 1 tab(s) orally thre e times a day as needed Active Colchicine 0.6 MG 1 tab(s) orally once a day Active ANALPRAM-HC 2.5% APPLY RECTALLY TID PRN 12/15/2019 Active Albuterol Sulfate (2.5 MG/3ML) 0.083% 3 ml Inhalation every 6 hrs, prn Not-Taking Potassium Chloride ER 20 MEQ 1 tab(s) orally once daily; Duration: 90 days Active Premarin 0.3 MG 1 tablet Orally Once a day; Duration: 90 days Active Lasix 40 MG 0.5 tab orally once a day; Duration: 90 days Active PriLOSEC OTC 20 MG 1 tablet 1/2 to 1 hour before morning meal Orally Once a day; Duration: 90 days Active Mupirocin 2 % 1 application Externally Twice a day 10/24/2024 Active Immunizations Vaccine Route Administration Date Status Comme nts Fluzone High Dose (65yr and older) IM Intramuscular 03/08/2025 Administered Encounters Encounter Location Date Provider Diagnosis [facility] [address] [facility] [address] [place] [id number] 03/08/2025 Dionicio Calderon Encounter for immunization Z23 Assessments Encounter Date Diagnosis (ICD Code) Assessment Notes Treatment Notes Treatment Clinical Notes Section Notes 03/08/2025 Encounter for immunization (ICD-10 - Z23) Plan Of Treatment No Information Progress Notes * CHRISTA MATIAS DionicioDOB:1955 (69 yo F)Acc No.[id number]:03/08/2025 Patient: CHRISTA SALAZAR Provider: Dionicio Calderon M.D. :1955 A ge:69 Y S ex:Female Date:03/08/2025 Address:[address] [place] [address], [place] [id number] Subjective: * Chief Complaints: * 1 . Flu shot. * Medical History: * Medications: T aking PATADAY ONCE DAILY [...] 180 MG 1 TAB QD , Taking [place]ains Nasal [place] 0.65 % Solution 2 spray(s) intranasally 4 times a day , Taking Albuterol Sulfate HFA 108 (90 Base) MCG/ACT Aerosol Solution INHALE 2 PUFF(S) BY MOUTH EVERY 6 HOURS NEEDED , Taking Premarin 0.625 MG/GM Cream _insert 1 GRAM VAGINALLY TWICE WEEKLY (IN THE EVENING) DIRECTED , Taking Montelukast Sodium 10 MG Tablet 1 tablet Orally once daily , Taking Fluticasone Propionate 50 MCG/ACT Suspension 1 spray(s) in each nostril once a day , Taking Advair Diskus 100-50 MCG/ACT Aerosol Powder Breath Activated 1 puff(s) inhaled noon , Taking Spironolactone 25 MG Tablet 1 tablet Orally Once a day , Taking Fluconazole 150 MG Tablet 1 tablet Orally daily , Taking methylPREDNISolone 4 MG Tablet Therapy Pack as directed Orally , Taking Mupirocin 2 % Ointment 1 application Externally Twice a day , Taking PriLOSEC OTC 20 MG Tablet Delayed Release 1 tablet 1/2 to 1 hour before morning meal Orally Once a day , Taking Lasix 40 MG Tablet 0.5 tab orally once a day , Taking Premarin 0.3 MG Tablet 1 tablet Orally Once a day , Taking Potassium Chloride ER 20 MEQ Tablet Extended Release 1 tab(s) orally once daily , Not-Taking Albuterol Sulfate (2.5 MG/3ML) 0.083% Nebulization Solution 3 ml Inhalation every 6 hrs, prn , Medication List reviewed and reconciled with the patient Objective: * Vitals: Assessment: * Assessment: 1. E ncounter for immunization - Z23 (Primary) Plan: * Treatment: * Immunizations: Fluzone High Dose (65yr and older) : 0.5 mL (Route: Intramuscular) given by RICO Ferraro on Right Deltoid (Encounter for immunization) * Images: Billing Information: * Visit Code: * Procedure Codes: * Electronic signature of Dionicio Calderon MD on 04/26/2025 at 07:25 AM EST Sign off status: Pending * Provider: Dionicio Calderon M.D. Date: Generated for Glendy vickers/Renee/Liz on: 06/27/2024 07:25 AM EST
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
--- OUTSIDE RECORDS SUMMARY | 2025-04-26 07:27 | XMS_ITS ---
Author Organization Unknown ENCOUNTERS Encounter Performer Location Date Diagnosis Diagnosis Status Emergency [facility] [address] [facility] [address] [place] [id number] ALMAZ Pre Admit [address] [place] [id number] Pre [facility]mit [facility] [address] [facility] [address] [facility] [place] [id number] Emergency [address] [facility] [address] [facility] [place] [id number] ALMAZ Emergency [facility] [address] [facility] [address] [place] [id number] ALMAZ *Note: Encounters from your own facility or health system may be excluded. Allergies, Adverse Reactions, Alerts Allergen Type Severity Identification Date nitrofurantoin drug allergy 0 20200112 Sulfa (Sulfonamide Antibiotics) drug allergy 0 20190204 cefaclor drug allergy 0 20200112 ciprofloxacin drug allergy 0 20190204 metronidazole drug allergy 0 20190204 Medications Name Date Quantity Days Supplied GPI Number
[2025-04-26 08:01] VITALS: BMI 37.8
[2025-04-26 08:25] VITALS: BP 123/74; PULSE 74; RESP 18; TEMP 36.2; O2SAT 95
--- NOTE | 2025-04-26 08:30 | CT_ITS ---
APPROVED REPORT Science Technicians: CLINICAL INDICATION Chest Pain TECHNIQUE Image Acquisition: A 128 slice MDCT scanner ([employer] View) was used for data acquisition. A noncontrast coronary calcium scan was performed. A CT attenuation threshold of 130 Hounsfield units (HU) was used for the detection of calcium in contiguous voxels of 1 sq mm in area to be counted as individual lesions. Bolus tracking in the ascending aorta with a threshold of 180 HU was performed. Immediately afterwards, ECG synchronized cardiac CT was then performed from the cardiac base to apex using retrospective gating with ECG tube current modulation. A total of 85 mL of Isovue 370 mg/mL contrast medium was administered at 5 mL/sec followed by a saline flush using a biphasic injection protocol. A tube voltage of 120 KVp was used. Image Reconstruction Transaxial images were reconstructed at 0.67 mm slide thickness. Data was reviewed interactively on an advanced workstation capable of 2 and 3-dimensional displays in all conventional reconstruction formats, including multiplanar reformations, maximum intensity projections, curved multiplanar reformations, and volume rendered reconstructions. When applicable, selected routine images describing the relevant coronary anatomy and pathology were saved and sent to PACS. Complications None Technical Quality Overall image quality was good. Coronary artery opacification was adequate. Total DLP (Dose-Length Product) is 1247.8 mGy-cm. The reported value represents the total of one or more individual components during the CT acquisition of this date and at this time, and as such, the same value may appear in more than one CT report depending on the interpreting/reporting physicians. COMPARISON None FINDINGS CT Coronary Calcium Scoring LMA (Left Main Artery) = 0 LAD (Left Anterior Descending) = 0 LCX (Left Coronary Circumflex) = 0 RCA (Right Coronary Artery) = 0 Total Calcium Score = 0 using the AJ-130 method. The interpretation of the calcium heart score is based on the following continuum*: 0 = no calcified plaque detected (risk of coronary artery disease is very low ??? less than 5%) 1-10 = calcium detected in extremely minimal levels (risk of coronary diseases is still low ??? less than 10%) 11-100 = mild levels of plaque detected with certainty (mild or minimal narrowing of heart arteries is likely) 101-400 = definite,at least moderate levels of plaque detected (relatively high risk of a heart attack within 3-5 years) >401-999 = extensive levels of plaque detected (high risk of heart attack, high levels of vascular disease are present, high likelihood of at least one significant coronary narrowing) *The calcium heart score quantifies the burden of coronary calcification/plaque in the coronary arteries. The calcium heart score is not able to evaluate the presence or burden of non-calcified (i.e. soft) plaque. There is no identifiable calcification in the aortic valve, mitral annulus or mitral valve, pericardium, or myocardium. Coronary CT Angiography The coronary arterial system is right dominant. Quantitative Stenosis Grading: Left Main (LM): The left main originates normally from the left sinus of Valsalva. The LM bifurcates into the left anterior descending artery and left circumflex artery. The LM is patent with no evidence of atherosclerosis. Left Anterior Descending (LAD) and Diagonal Branches: The LAD gives off 3 diagonal branch(es). The LAD and its branches are patent with no evidence of atherosclerosis. There is no evidence of LAD-myocardial bridge. Left Circumflex (LCX) and Obtuse Marginals (OM): The LCX gives off 1 Obtuse Marginal (OM) branch(es). The LCX and its branches are patent with no evidence of atherosclerosis. Right Coronary Artery (RCA): The RCA originates normally from the right sinus of Valsalva. The RCA gives off a posterior descending artery (PDA) and posterolateral (PL) branches. The RCA and its branches are patent with no evidence of atherosclerosis. Non-Coronary Cardiac Findings: Analysis of the left ventricular (LV) structure and function was performed after 3-D reconstruction of the LV from axial images, with user-corrected automatic contouring for assessment of LV volumes and user-defined reconstruction from oblique planes for measurement of 3-D cardiac structure and function. -The left ventricle systolic function is normal. -There is no left atrial appendage filling defect. Two right pulmonary veins and two left pulmonary veins drain normally into the left atrium. -No pericardial thickening or calcification. -Central and branch pulmonary arteries in the bqvyj-wi-evcw are unremarkable. -Thoracic aorta within the visualized thoracic aortic-branches in the [id number]-gq-macm is unremarkable. Extracardiac Structures No significant extra-cardiac findings. Note, however, that this study is focused on the cardiac findings. IMPRESSION -Absence of coronary calcification with an Agatston score = 0 using the AJ-130 method. -No evidence of significant flow-limiting atherosclerosis of the coronary arteries. -No evidence of coronary anomalies or myocardial bridging. -CAD-RADS 0. Management recommendations per ACC/AHA guidelines*, as clinically appropriate. *Recommendations: CAD RADS 0: Reassurance. Consider non-atherosclerotic causes of chest pain. CAD RADS 1: Consider non-atherosclerotic causes of chest pain. Consider preventive therapy and risk factor modification. CAD RADS 2: Consider non-atherosclerotic causes of chest pain. Consider preventive therapy and risk factor modification, particularly for patients with nonobstructive plaque in multiple segments. CAD RADS 3: Consider further functional testing. Consider symptom-guided anti-ischemic and preventive pharmacotherapy as well as risk factor modification per published guideline statements. CAD RADS 4A: Consider further functional testing or invasive coronary angiography with revascularization per published guideline statements. Consider symptom-guided anti-ischemic and preventive pharmacotherapy as well as risk factor modification per published guideline statements. CAD RADS 4B: Invasive coronary angiography recommended with revascularization per published guideline statements. Consider symptom-guided anti-ischemic and preventive pharmacotherapy as well as risk factor modification per published guideline statements. CAD RADS 5: Consider invasive angiography and/or viability assessment with revascularization per published guideline statements. Consider symptom-guided anti-ischemic and preventive pharmacotherapy as well as risk factor modification per published guideline statements. CRITICAL RESULT None COMMUNICATION Per this written report The coronary and cardiac findings of this CCTA were reviewed, reported, and signed by Tito Hawkins MD (Wire Temperer). Conclusion Electronically signed by : Mallika Hawkins MD 05/04/2025 08:46:28
[2025-04-26 08:38] LABS: Chloride 102 mmol/L (98-107)
[2025-04-26] MEDS: IVABRADINE HCL 7.5MG TABLET PO (08:38)
[2025-04-26 08:39] LABS: Potassium 4.3 mmoL/L (3.5-5.1); Sodium 133 mmol/L (136-145)
[2025-04-26] MEDS: METOPROLOL TARTRATE 50MG TABLET PO (08:39)
[2025-04-26 08:42] LABS: Anion Gap 8.3 mEq/L (5-15); Blood Urea Nitrogen 17 mg/dl (7-17); Calcium 8.7 mg/dl (8.4-10.2); Carbon Dioxide 27 mmol/L (22.0-30.0); Creatinine Clearance Estimated 84 mL/min (50-200); Creatinine,Serum 1.00 mg/dl (0.52-1.04); Estimated Glomerular Filt Rate 55 ml/min (>60); GFR (African American) 67 ML/MIN (>60); Glucose 87 mg/dl (74-100)
--- NOTE | 2025-04-26 09:30 | CA_ITS ---
APPROVED REPORT EXAM: Comprehensive 2D, Doppler, and color-flow Echocardiogram Cushion Assembler: Yahaira Xiong RVT Ht: 5 ft 4 in Wt: 224lbs BSA: 2.05 BP: 148/76 mmHg Indications: PALPITATIONS,FATIGUE,CHEST PAIN 2D Dimensions IVSd 1.21 cm F: 0.6-1.0 LVEF (Visual) 60.30 % PWd 0.94 cm F: 0.6 - 1.0 LA Volume 15.80 mL LVDd 4.06 cm F: 3.9 - 5.3 LA Volume Index 7.71 mL/m2 (M/F) 16-34 LVDs 2.77 cm F: 2.2 - 3.5 M-Mode Dimensions LA Diam 2.88 cm (1.9-4.0) TAPSE 1.98 (<1.7) LV Diastology E Decel Time 187 (160-240 msec) E/A Ratio 0.8 Aortic Valve JESSE Index 1.64 cm2/m2 AoV Peak Lb. 70.0 (50-130 cm/s) AO Peak GR. 1.90 mmHg AO Mean GR. 1.30 (<5 mmHg) AO VTI 17.9 (18-25 cm) JESSE (VTI) 3.44 (2.5-4.5 cm2) Mitral Valve MV E Max Lb. 85.0 (40-130 cm/s) MV A Velocity 101.0 (40-130 cm/s) E/A Ratio 0.84 MV PHT 55.0 ms Pulmonary Valve PV Peak Velocity 55.0 (50-150 cm/s) Left Ventricle The left ventricle is normal size. Left ventricular systolic function is low-normal. There is increased left ventricular wall thickness. The septum is asynchronous. The left ventricular diastolic function is normal. LVEF is 50%. Right Ventricle The right ventricle is mildly dilated. The right ventricular systolic function is normal. Atria Left atrium is mildly dilated. Right atrium is mildly dilated. There is no color Doppler evidence of interatrial shunt. Aortic Valve The aortic valve is mildly thickened. There is no hemodynamically significant aortic valvular stenosis. Trace aortic regurgitation is present. Mitral Valve The mitral valve is normal in structure. No evidence of mitral valve stenosis. Mild mitral regurgitation is present. Tricuspid Valve The tricuspid valve leaflets are thin and pliable. Trace tricuspid regurgitation. There is insufficient TR jet to estimate RVSP. Pulmonic Valve The pulmonary valve is grossly normal in structure. Trace pulmonic valve regurgitation is present. Great Vessels The aortic root is normal in size. IVC is normal in size and collapses >50% with inspiration. Pericardium There is no pericardial effusion. Other Information Study Quality: Technically Difficult Conclusion Low-normal LV systolic function (LVEF 50%). Asynchronous septum. Mild biatrial dilation. Mild MR. Electronically signed by : Mallika Hawkins MD 05/06/2025 14:05:07
[2025-04-26] MEDS: 0.9 % SODIUM CHLORIDE 50 ML VIAL 40 ML IV (09:31)
[2025-04-26] MEDS: SODIUM CHLORIDE 0.9% 10ML SYR (RAD ONLY) 10 ML IV (09:31)
[2025-04-26] MEDS: IOPAMIDOL-370 (76%);100ML BOTTLE 85 ML IV (09:31)
--- NOTE | 2025-04-26 09:43 | PC.NURSE ---
Patients vitals during CTA procedure: Pre-scan (917) BP 146/63, HR 66, O2 97% RA Start (921) BP 122/76, HR 63, O2 96% RA Stop (927) BP 120/72, HR 62, O2 96% RA Discharge (938) BP 116/64, HR 57, O2 98% RA RN encouraged patient to drink plenty of water after discharge to flush contrast from kidneys. She verbalized understanding. Patient taken to echo lab with tech. Yahaira
== END 2025-04-26 23:59 | disposition home or self-care (01) ==
PROVIDERS: PCP Family Medicine; Visit Provider Internal Medicine
DX: I34.0 Nonrheumatic mitral (valve) insufficiency (principal); I51.7 Cardiomegaly; R93.1 Abnormal findings on diagnostic imaging of heart and coronary circulation; R60.1 Generalized edema
CPT/HCPCS: 75574; 80048; 93306; Q9967

== ENCOUNTER 2025-05-01 14:52 | Outpatient (CLI) | payer MEDICARE, OTHER, SELFPAY ==
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
--- OUTSIDE RECORDS SUMMARY | 2024-02-24 06:55 | XMS_ITS ---
Author Organization [facility] Address [address] [facility] 36 [facility] [address] [place] [id number] Care Team Providers Care Audio/Visual Operator Name Role Phone Dionicio Calderon Primary Care Provider [phone] REASON FOR VISIT FLU SHOT Immunizations Vaccine Route Administration Date Status Comme nts Fluzone High Dose (65yr and older) IM Intramuscular 02/24/2024 Administered Encounters Encounter Location Date Provider Diagnosis [place] [address] [facility] [address] [place] [phone] 02/24/2024 Dionicio Calderon Encounter for immunization Z23 Assessments Encounter Date Diagnosis (ICD Code) Assessment Notes Treatment Notes Treatment Clinical Notes Section Notes 02/24/2024 Encounter for immunization (ICD-10 - Z23) Plan Of Treatment No Information Progress Notes * CHRISTA MATIAS JDOB:1955 (69 yo F)Acc No.[id number]:02/24/2024 Patient: CHRISTA SALAZAR Provider: Dionicio Calderon M.D. [...] Electronic signature of Dionicio Calderon MD on 05/01/2025 at 02:58 PM EST Sign off status: Pending * Provider: Dionicio Calderon M.D. Date: 1 Generated for Glendy vickers/Renee/Liz on: 1 07/02/2024 02:58 PM EST
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
--- OUTSIDE RECORDS SUMMARY | 2025-03-08 08:30 | XMS_ITS ---
Author Organization [facility] Address [address] [facility] [address] [place] [id number] Care Team Providers Care Resident Hall Director Name Role Phone Dionicio Calderon Primary Care [...] EVERY 6 HOURS NEEDED; Duration: 25 Active [place] Nasal [place] 0.65 % 2 spray(s) intranasally 4 times [...] Administered Encounters Encounter Location Date Provider Diagnosis [facility] [address] [facility] [address] [place] [phone] 03/08/2025 Dionicio Calderon Encounter for immunization Z23 Assessments Encounter Date Diagnosis (ICD Code) Assessment Notes Treatment Notes Treatment Clinical Notes Section Notes 03/08/2025 Encounter for immunization (ICD-10 - Z23) Plan Of Treatment No Information Progress Notes * CHRISTA MATIAS DionicioDOB:1955 (69 yo F)Acc No.[id number]:03/08/2025 Patient: CHRISTA SALAZAR Provider: Dionicio Calderon M.D. :1955 A ge:69 Y S ex:Female Date:03/08/2025 Address:[address] [place] [address], [id number] Subjective: * Chief Complaints: * 1 . [...] 180 MG 1 TAB QD , Taking [place] Nasal [place] 0.65 % Solution 2 spray(s) intranasally 4 [...] of Dionicio Calderon MD on 05/01/2025 at 02:57 PM EST Sign off status: Pending * Provider: Dionicio Calderon M.D. Date: Generated for Glendy vickers/Renee/Liz on: 07/02/2024 02:57 PM EST
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
--- NOTE | 2025-05-01 14:55 | MM_ITS ---
PROCEDURE INFORMATION: Exam: MG Bilateral Screening 3D Mammography Exam date and time: 05/01/2025 2:54 PM Age: 69 years old Clinical indication: Screening mammogram TECHNIQUE: Imaging protocol: Bilateral Screening tomosynthesis and 2D mammography including computer-aided detection (CAD) when performed. COMPARISON: 1. MG MM DIG SCREENING MAMM BI W/CAD 04/20/2024 10:31 AM 2. MG MM DIG SCREENING MAMM BI W/CAD 04/08/2023 10:47 AM FINDINGS: MAMMOGRAPHY: Breast composition: There are scattered areas of fibroglandular density. Mass: None. Architectural distortion: No new or suspicious architectural distortion. Calcifications: No new or suspicious calcifications are present Asymmetric density: No new or suspicious asymmetric density is present Skin thickening: None. Axillary adenopathy: None. IMPRESSION: No mammographic evidence of malignancy. Recommend annual screening mammography unless otherwise clinically indicated. ASSESSMENT: BI-RADS category 1: Negative.
--- OUTSIDE RECORDS SUMMARY | 2025-05-01 14:57 | XMS_ITS | Clinical Summary ---
Author Organization [facility] Address [address] [place] [address] Care Team Providers Care [place] Maori Name Role Phone Joselo Calderon MD Primary Care Provider [phone] Allergies Active Allergy Reactions Criticality Noted Date [...] Low 03/10/2017 Medications Multiple Vitamins-Minera ls (COMPLETE MULTIVITAMIN/MD NERAL PO) Take 1 capsule by mouth [...] 12/08/2024 COVID-19 Vaccine ( season) [address] [facility] Advance Directives * Full Code (Latest Code Status on File) Date Activated Date Inactivated Comments 03/12/2017 7:54 AM 03/12/2017 3:13 PM Care Teams [place] Relationship Specialty Start Date End Date Joselo Calderon MD [address] [facility] [address] [place] [address] PCP - General Family Medicine 03/10/17
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
== END 2025-05-01 23:59 | disposition home or self-care (01) ==
LOC: RAD 14:53
PROVIDERS: PCP Family Medicine; Visit Provider Family Medicine
DX: Z12.31 Encounter for screening mammogram for malignant neoplasm of breast (principal); R92.323 Mammographic fibroglandular density, bilateral breasts
CPT/HCPCS: 77063; 77067